=== PATIENT | female | born 1970 | race Caucasian/White ===

== ENCOUNTER 2018-02-13 05:38 | Outpatient (CLI) | payer OTHER ==
[~2018-02-13] VITALS: Ht 162.6 cm; Wt 102.1 kg
[2018-02-13] MEDS ORDERED: SIMV20TA3 PO (15:30)
[2018-02-21] MEDS ORDERED: IBUP-844 PO (07:36)
[2018-02-21] MEDS ORDERED: SIME80TA16 PO (07:36)
[2018-02-21] MEDS ORDERED: DOCU100C37 PO (07:36)
[2018-02-21] MEDS ORDERED: HYDR-34 PO (07:36)
== END 2018-02-13 15:37 ==
LOC: PREOP 05:38
PROVIDERS: ATTEND Obstetrics & Gynecology
DX: Z01.818 Encounter for other preprocedural examination (principal); R19.09 Other intra-abdominal and pelvic swelling, mass and lump; N93.9 Abnormal uterine and vaginal bleeding, unspecified

== ENCOUNTER 2018-02-21 06:08 | Day surgery (SDC) | payer OTHER ==
[~2018-02-21] VITALS: Ht 162.6 cm; Wt 102.1 kg
[~2018-02-21 06:08] MED LIST: SIMV20TA3 PO
--- OUTSIDE RECORDS SUMMARY | 2018-02-21 06:12 | XMS REPORT | Clinical Summary ---
Author Author Admin, ADAM Organization [facility] Address Unknown Phone Unavailable Allergies, Adverse Reactions, Alerts Allergy Name Reaction Description Start Date Severity Status Provider No Known Allergies MARIE Minor Conditions or Problems Problem Name Problem Code Onset Date Status Entry Date Provider Comment Standard Description Annotate HYPERLIPIDEMIA 272.4 Active Jakub Arciniega MD Other and unspecified hyperlipidemia UNSPECIFIED PRURITIC DISORDER 698.9 Active Jakub Arciniega MD Unspecified pruritic disorder BRONCHITIS-ACUTE 466.0 Inactive Jakub Arciniega MD Acute bronchitis ROUTINE GYNECOLOGICAL EXAMINATION V72.31 Resolved Leanne Olmos MD PhD Routine gynecological examination HEALTH SCREENING V70.0 Resolved Leanne Olmos MD PhD Routine general medical examination at a health care facility FATIGUE 780.79 Resolved Leanne Olmos MD PhD Other malaise and fatigue SKIN RASH 782.1 Resolved Leanne Olmos MD PhD Rash and other nonspecific skin eruption PHARYNGITIS 462 Active Leanne Olmos MD PhD Acute pharyngitis MENOPAUSAL SYNDROME 627.2 Active Alem Chow Symptomatic menopausal or female climacteric states KNEE PAIN, LEFT 719.46 Active Dimple García Pain in joint involving lower leg Dermatitis, face 692.9 Active Jakub Arciniega MD Contact dermatitis and other eczema, unspecified cause Upper respiratory infection 465.9 Active David Mercedes MD Acute upper respiratory infections of unspecified site Skin tag 701.9 Active Jakub Arciniega MD Unspecified hypertrophic and atrophic conditions of skin BRONCHITIS-ACUTE ICD-466.0 Inactive Jakub Arciniega MD ROUTINE GYNECOLOGICAL EXAMINATION ICD-V72.31 Inactive Leanne Olmos MD PhD HEALTH SCREENING ICD-V70.0 Inactive Leanne Olmos MD PhD FATIGUE ICD-780.79 Inactive Leanne Olmos MD PhD SKIN RASH ICD-782.1 Inactive Leanne Olmos MD PhD Medication List Medication Instructions Start Date Stop Date Generic Name NDC Status Provider Patient Instruction GUAIFENESIN-CODEINE 100-10 MG/5ML SYRP 1 tsp PO q6h PRN cough GUAIFENESIN-CODEINE 45343338519 No Longer Active Jakub Arciniega MD Active SPIRONOLACTONE 25 MG TABS TAKE 1/2 TABLET PO QD SPIRONOLACTONE 96519238736 No Longer Active Jakub Arciniega MD Active DOXYCYCLINE HYCLATE 100 MG CAPS TAKE 1 TABLET PO BID DOXYCYCLINE HYCLATE 65528083126 No Longer Active Jakub Arciniega MD Active HYDROCODONE-ACETAMINOPHEN 5-500 MG TABS take 1 po Q 6 hours prn pain HYDROCODONE-ACETAMINOPHEN 92375878074 No Longer Active Jakub Arciniega MD Active BACTROBAN 2 % OINT 3 times daily for 14 days MUPIROCIN 25459654230 No Longer Active Jakub Arciniega MD Active CHERATUSSIN AC 100-10 MG/5ML SYRP 1 tsp by mouth every 4 hours as needed for cough GUAIFENESIN-CODEINE 09367297324 No Longer Active Jakub Arciniega MD Active PREDNISONE 20 MG TAB 2 tabs daily for 3 days, 1 tab daily for 3 days, 1/2 tab daily for 2 days PREDNISONE 27573604675 No Longer Active Jakub Arciniega MD Active ZITHROMAX 250 MG TAB 2 po today, then 1 po q days 2-5 AZITHROMYCIN 81124768317 No Longer Active Jakub Arciniega MD Active SIMVASTATIN 20 MG TABS 1 po daily SIMVASTATIN 47876104605 Active Jakub Arciniega MD Active CHERATUSSIN AC 100-10 MG/5ML SYRP 1 tsp by mouth every 4 hours as needed for cough CHERATUSSIN AC 100-10 MG/5ML SYRP 677641 GUAIFENESIN-CODEINE Inactive BACTROBAN 2 % OINT 3 times daily for 14 days BACTROBAN 2 % OINT 984141 MUPIROCIN Inactive HYDROCODONE-ACETAMINOPHEN 5-500 MG TABS take 1 po Q 6 hours prn pain HYDROCODONE-ACETAMINOPHEN 5-500 MG TABS HYDROCODONE- ACETAMINOPHEN Inactive DOXYCYCLINE HYCLATE 100 MG CAPS TAKE 1 TABLET PO BID DOXYCYCLINE HYCLATE 100 MG CAPS 5856602 DOXYCYCLINE HYCLATE Inactive SPIRONOLACTONE 25 MG TABS TAKE 1/2 TABLET PO QD SPIRONOLACTONE 25 MG TABS 460252 SPIRONOLACTONE Inactive GUAIFENESIN-CODEINE 100-10 MG/5ML SYRP 1 tsp PO q6h PRN cough GUAIFENESIN-CODEINE 100-10 MG/5ML SYRP 528399 GUAIFENESIN-CODEINE Inactive ZITHROMAX 250 MG TAB 2 po today, then 1 po q days 2-5 ZITHROMAX 250 MG TAB 9113399 AZITHROMYCIN Inactive PREDNISONE 20 MG TAB 2 tabs daily for 3 days, 1 tab daily for 3 days, 1/2 tab daily for 2 days PREDNISONE 20 MG TAB 809238 PREDNISONE Inactive Vital Signs Date Name Value Unit Range Description blood pressure, diastolic - 8462-4 76 mm[Hg] BP woodard blood pressure, systolic - 8480-6 115 mm[Hg] BP sys pulse rate E&M - 8867-4 88 /min Heart rate temperature E&M 98.2 [degF] Body temperature weight E&M - 3141-9 230 [lb_av] Weight Measured blood pressure, diastolic - 8462-4 84 mm[Hg] BP woodard blood pressure, systolic - 8480-6 127 mm[Hg] BP sys pulse rate E&M - 8867-4 71 /min Heart rate temperature E&M 97.8 [degF] Body temperature weight E&M - 3141-9 237.4 [lb_av] Weight Measured Diagnostic Results Date Name Value Unit Range Description Chart Maintenance: labs added to flowsheet - Chemistry cholesterol, serum 189 mg/dL HDL cholesterol, serum 62 mg/dL LDL cholesterol, serum 101 mg/dL triglyceride, serum, fasting 126 mg/dL thyroid stimulating hormone, serum 1.18 u[iU]/mL blood glucose 97 mg/dL Chart Maintenance: labs added to flowsheet - Hematology leukocyte count, blood 6.3 10*3/mm3 hemoglobin, blood 15.4 g/dL platelet count 280 10*3/mm3 Encounters Code Encounter Date Provider Facility CPT-00781 Level 3 Est. Patient 13:49:04 CDT Jakub Arciniega MD [facility] CPT-06079 Level 3 Est. Patient 12:49:25 KINESIOLOGY PROFESSOR David Mercedes MD [facility] CPT-77832 Level 3 Est. Patient 20:50:49 CDT Jakub Arciniega MD [facility] CPT-13785 Level 3 Est. Patient 14:31:29 CDT Dimple García [facility] CPT-17814 Level 3 Est. Patient 21:23:01 CDT Leanne Olmos MD PhD [facility] CPT-64043 Level 3 Est. Patient 15:37:45 KINESIOLOGY PROFESSOR Jakub Arciniega MD [facility] CPT-14256 Level 3 Est. Patient 10:40:45 KINESIOLOGY PROFESSOR Jakub Arciniega MD [facility] CPT-77991 Level 3 Est. Patient 14:24:04 CDT Jakub Arciniega MD [facility] Procedures Code Procedure Name Date Entry Date Standard Description CPT-04735 Skin tag remov up to/=15 13:49:04 CDT CPT-49177 Knee 3V 17:10:15 CDT
--- OUTSIDE RECORDS SUMMARY | 2018-02-21 06:12 | XMS REPORT | Clinical Summary ---
Author Author Admin, ADAM Organization [facility] Address Unknown Phone Unavailable Allergies, Adverse Reactions, Alerts Allergy Name Reaction Description Start Date Severity Status Provider No Known Allergies Zoya Harper Conditions or Problems Problem Name Problem Code [...] 1 tsp PO q6h PRN cough GUAIFENESIN-CODEINE 60519125958 No Longer Active Jakub Arciniega MD Active SPIRONOLACTONE 25 MG TABS TAKE 1/2 TABLET PO QD SPIRONOLACTONE 69648386171 No Longer Active Jakub Arciniega MD Active DOXYCYCLINE HYCLATE 100 MG CAPS TAKE 1 TABLET PO BID DOXYCYCLINE HYCLATE 01375130370 No Longer Active Jakub Arciniega MD Active HYDROCODONE-ACETAMINOPHEN 5-500 MG TABS take 1 po Q 6 hours prn pain HYDROCODONE-ACETAMINOPHEN 30318665838 No Longer Active Jakub Arciniega MD Active BACTROBAN 2 % OINT 3 times daily for 14 days MUPIROCIN 44212051403 No Longer Active Jakub Arciniega MD Active CHERATUSSIN AC 100-10 MG/5ML SYRP 1 tsp by mouth every 4 hours as needed for cough GUAIFENESIN-CODEINE 44886725228 No Longer Active Jakub Arciniega MD Active PREDNISONE 20 MG TAB 2 tabs daily for 3 days, 1 tab daily for 3 days, 1/2 tab daily for 2 days PREDNISONE 92121696730 No Longer Active Jakub Arciniega MD Active ZITHROMAX 250 MG TAB 2 po today, then 1 po q days 2-5 AZITHROMYCIN 91010643581 No Longer Active Jakub Arciniega MD Active SIMVASTATIN 20 MG TABS 1 po daily SIMVASTATIN 31863851714 Active Jakub Arciniega MD Active CHERATUSSIN AC 100-10 MG/5ML SYRP 1 tsp by mouth every 4 hours as needed for cough CHERATUSSIN AC 100-10 MG/5ML SYRP 220482 GUAIFENESIN-CODEINE Inactive BACTROBAN 2 % OINT 3 times daily for 14 days BACTROBAN 2 % OINT 144788 MUPIROCIN Inactive HYDROCODONE-ACETAMINOPHEN 5-500 MG TABS take 1 po Q 6 hours prn pain HYDROCODONE-ACETAMINOPHEN 5-500 MG TABS HYDROCODONE- ACETAMINOPHEN Inactive DOXYCYCLINE HYCLATE 100 MG CAPS TAKE 1 TABLET PO BID DOXYCYCLINE HYCLATE 100 MG CAPS 2248854 DOXYCYCLINE HYCLATE Inactive SPIRONOLACTONE 25 MG TABS TAKE 1/2 TABLET PO QD SPIRONOLACTONE 25 MG TABS 625750 SPIRONOLACTONE Inactive GUAIFENESIN-CODEINE 100-10 MG/5ML SYRP 1 tsp PO q6h PRN cough GUAIFENESIN-CODEINE 100-10 MG/5ML SYRP 689826 GUAIFENESIN-CODEINE Inactive ZITHROMAX 250 MG TAB 2 po today, then 1 po q days 2-5 ZITHROMAX 250 MG TAB 8458238 AZITHROMYCIN Inactive PREDNISONE 20 MG TAB 2 tabs daily for 3 days, 1 tab daily for 3 days, 1/2 tab daily for 2 days PREDNISONE 20 MG TAB 757507 PREDNISONE Inactive Vital Signs Date Name Value Unit Range Description blood pressure, diastolic - 8462-4 102 mm[Hg] BP woodard blood pressure, systolic - 8480-6 138 mm[Hg] BP sys pulse rate E&M - 8867-4 59 /min Heart rate temperature E&M 98.4 [degF] Body temperature weight E&M - 3141-9 230.5 [lb_av] Weight Measured Diagnostic Results Date Name Value Unit Range Description Office Visit: Med check up - Chemistry cholesterol, target level 200 mg/dL LDL target level 160 mg/dL HDL cholesterol, serum, target level 40 mg/dL triglyceride, target level 150 mg/dL Encounters Code Encounter Date Provider Facility CPT-42249 Level 4 Est. Patient 14:50:56 GRADES 9 12 TUTOR Jakub Arciniega MD [facility] CPT-03364 Level 3 Est. Patient 13:49:04 CDT Jakub Arciniega MD [facility] CPT-13055 Level 3 Est. Patient 12:49:25 GRADES 9 12 TUTOR David Mercedes MD [facility] CPT-84152 Level 3 Est. Patient 20:50:49 CDT Jakub Arciniega MD [facility] CPT-05101 Level 3 Est. Patient 14:31:29 CDT Dimple García [facility] CPT-14064 Level 3 Est. Patient 21:23:01 CDT Leanne Olmos MD PhD [facility] CPT-51848 Level 3 Est. Patient 15:37:45 GRADES 9 12 TUTOR Jakub Arciniega MD [facility] CPT-37405 Level 3 Est. Patient 10:40:45 GRADES 9 12 TUTOR Jakub Arciniega MD [facility] CPT-49983 Level 3 Est. Patient 14:24:04 CDT Jakub Arciniega MD [facility] Procedures Code Procedure Name Date Entry Date Standard Description CPT-78431 Skin tag remov up to/=15 13:49:04 CDT CPT-56779 Knee 3V 17:10:15 CDT
--- OUTSIDE RECORDS SUMMARY | 2018-02-21 06:12 | XMS REPORT | Clinical Summary ---
Author Author Admin, ADAM Organization [facility] Address Unknown Phone Unavailable Allergies, Adverse Reactions, Alerts Allergy Name Reaction Description Start Date Severity Status Provider No Known Allergies Alem Chow Conditions or Problems Problem Name Problem Code [...] Acute upper respiratory infections of unspecified site BRONCHITIS-ACUTE ICD-466.0 Inactive Jakub Arciniega MD ROUTINE GYNECOLOGICAL EXAMINATION ICD-V72.31 Inactive Leanne Olmos MD PhD HEALTH SCREENING ICD-V70.0 Inactive Leanne Olmos MD PhD FATIGUE ICD-780.79 Inactive Leanne Olmos MD PhD SKIN RASH ICD-782.1 Inactive Leanne Olmos MD PhD Medication List Medication Instructions Start Date Stop Date Generic Name ND Status Provider Patient Instruction GUAIFENESIN-CODEINE 100-10 MG/5ML SYRP 1 tsp PO q6h PRN cough GUAIFENESIN-CODEINE 14621675999 Active David Mercedes MD Active SPIRONOLACTONE 25 MG TABS TAKE 1/2 TABLET PO QD SPIRONOLACTONE 96203036515 No Longer Active Jakub Arciniega MD Active DOXYCYCLINE HYCLATE 100 MG CAPS TAKE 1 TABLET PO BID DOXYCYCLINE HYCLATE 51872185725 No Longer Active Jakub Arciniega MD Active HYDROCODONE-ACETAMINOPHEN 5-500 MG TABS take 1 po Q 6 hours prn pain HYDROCODONE-ACETAMINOPHEN 18830298817 No Longer Active Jakub Arciniega MD Active BACTROBAN 2 % OINT 3 times daily for 14 days MUPIROCIN 65398469298 No Longer Active Jakub Arciniega MD Active CHERATUSSIN AC 100-10 MG/5ML SYRP 1 tsp by mouth every 4 hours as needed for cough GUAIFENESIN-CODEINE 84223068508 No Longer Active Jakub Arciniega MD Active PREDNISONE 20 MG TAB 2 tabs daily for 3 days, 1 tab daily for 3 days, 1/2 tab daily for 2 days PREDNISONE 40169694835 No Longer Active Jakub Arciniega MD Active ZITHROMAX 250 MG TAB 2 po today, then 1 po q days 2-5 AZITHROMYCIN 40457612560 No Longer Active Jakub Arcineiga MD Active SIMVASTATIN 20 MG TABS 1 po daily SIMVASTATIN 00696086598 Active Jakub Arciniega MD Active CHERATUSSIN AC 100-10 MG/5ML SYRP 1 tsp by mouth every 4 hours as needed for cough CHERATUSSIN AC 100-10 MG/5ML SYRP 555869 GUAIFENESIN-CODEINE Inactive BACTROBAN 2 % OINT 3 times daily for 14 days BACTROBAN 2 % OINT 954918 MUPIROCIN Inactive HYDROCODONE-ACETAMINOPHEN 5-500 MG TABS take 1 po Q 6 hours prn pain HYDROCODONE-ACETAMINOPHEN 5-500 MG TABS HYDROCODONE- ACETAMINOPHEN Inactive DOXYCYCLINE HYCLATE 100 MG CAPS TAKE 1 TABLET PO BID DOXYCYCLINE HYCLATE 100 MG CAPS 245311 DOXYCYCLINE HYCLATE Inactive SPIRONOLACTONE 25 MG TABS TAKE 1/2 TABLET PO QD SPIRONOLACTONE 25 MG TABS 101969 SPIRONOLACTONE Inactive ZITHROMAX 250 MG TAB 2 po today, then 1 po q days 2-5 ZITHROMAX 250 MG TAB 0849187 AZITHROMYCIN Inactive PREDNISONE 20 MG TAB 2 tabs daily for 3 days, 1 tab daily for 3 days, 1/2 tab daily for 2 days PREDNISONE 20 MG TAB 349306 PREDNISONE Inactive Vital Signs Date Name Value Unit Range Description blood pressure, diastolic - 8462-4 84 mm[Hg] BP woodard blood pressure, systolic - 8480-6 127 mm[Hg] BP sys pulse rate E&M - 8867-4 71 /min Heart rate temperature E&M 97.8 [degF] Body temperature weight E&M - 3141-9 237.4 [lb_av] Weight Measured Diagnostic Results Date Name Value Unit Range Description Chart Maintenance: labs added to flowsheet - Chemistry sodium, serum 142 mmol/L potassium, serum 3.9 mmol/L urea nitrogen, blood 12 mg/dL blood glucose 100 mg/dL creatinine, serum .70 mg/dL alkaline phosphatase, serum 63 U/L cholesterol, serum 147 mg/dL HDL cholesterol, serum 58 mg/dL LDL cholesterol, serum 72 mg/dL triglyceride, serum, fasting 84 mg/dL cholesterol, serum 189 mg/dL HDL cholesterol, serum 62 mg/dL LDL cholesterol, serum 101 mg/dL triglyceride, serum, fasting 126 mg/dL thyroid stimulating hormone, serum 1.18 u[iU]/mL blood glucose 97 mg/dL Chart Maintenance: labs added to flowsheet - Hematology leukocyte count, blood 6.3 10*3/mm3 hemoglobin, blood 15.4 g/dL platelet count 280 10*3/mm3 leukocyte count, blood 6.3 10*3/mm3 hemoglobin, blood 14.3 g/dL platelet count 247 10*3/mm3 Encounters Code Encounter Date Provider Facility CPT-43242 Level 3 Est. Patient 12:49:25 DIRECTOR OF BUSINESS APPLICATIONS David Mercedes MD [facility] CPT-86740 Level 3 Est. Patient 20:50:49 CDT Jakub Arciniega MD [facility] CPT-83291 Level 3 Est. Patient 14:31:29 CDT Dimple García [facility] CPT-30795 Level 3 Est. Patient 21:23:01 CDT Leanne Olmos MD PhD [facility] CPT-56682 Level 3 Est. Patient 15:37:45 DIRECTOR OF BUSINESS APPLICATIONS Jakub Arciniega MD [facility] CPT-91310 Level 3 Est. Patient 10:40:45 DIRECTOR OF BUSINESS APPLICATIONS Jakub Arciniega MD [facility] CPT-72985 Level 3 Est. Patient 14:24:04 CDT Jakub Arciniega MD [facility] Procedures Code Procedure Name Date Entry Date Standard Description CPT-27405 Knee 3V 17:10:15 CDT
--- OUTSIDE RECORDS SUMMARY | 2018-02-21 06:13 | XMS REPORT | Clinical Summary ---
Author Author Admin, ADAM Organization [facility] Address Unknown Phone Unavailable Allergies, Adverse [...] 1 tsp PO q6h PRN cough GUAIFENESIN-CODEINE 74102603343 No Longer Active Jakub Arciniega MD Active SPIRONOLACTONE 25 MG TABS TAKE 1/2 TABLET PO QD SPIRONOLACTONE 11217499332 No Longer Active Jakub Arciniega MD Active DOXYCYCLINE HYCLATE 100 MG CAPS TAKE 1 TABLET PO BID DOXYCYCLINE HYCLATE 14735281593 No Longer Active Jakub Arciniega MD Active HYDROCODONE-ACETAMINOPHEN 5-500 MG TABS take 1 po Q 6 hours prn pain HYDROCODONE-ACETAMINOPHEN 14261460716 No Longer Active Jakub Arciniega MD Active BACTROBAN 2 % OINT 3 times daily for 14 days MUPIROCIN 04636366190 No Longer Active Jakub Arciniega MD Active CHERATUSSIN AC 100-10 MG/5ML SYRP 1 tsp by mouth every 4 hours as needed for cough GUAIFENESIN-CODEINE 59394968264 No Longer Active Jakub Arciniega MD Active PREDNISONE 20 MG TAB 2 tabs daily for 3 days, 1 tab daily for 3 days, 1/2 tab daily for 2 days PREDNISONE 96181005579 No Longer Active Jakub Arciniega MD Active ZITHROMAX 250 MG TAB 2 po today, then 1 po q days 2-5 AZITHROMYCIN 03031757734 No Longer Active Jakub Arciniega MD Active SIMVASTATIN 20 MG TABS 1 po daily SIMVASTATIN 25822535277 Active Lashell Carney SUPERVISOR WORD PROCESSING Active CHERATUSSIN AC 100-10 MG/5ML SYRP 1 tsp by mouth every 4 hours as needed for cough CHERATUSSIN AC 100-10 MG/5ML SYRP 679995 GUAIFENESIN-CODEINE Inactive BACTROBAN 2 % OINT 3 times daily for 14 days BACTROBAN 2 % OINT 576085 MUPIROCIN Inactive HYDROCODONE-ACETAMINOPHEN 5-500 MG TABS take 1 po Q 6 hours prn pain HYDROCODONE-ACETAMINOPHEN 5-500 MG TABS HYDROCODONE- ACETAMINOPHEN Inactive DOXYCYCLINE HYCLATE 100 MG CAPS TAKE 1 TABLET PO BID DOXYCYCLINE HYCLATE 100 MG CAPS 6027346 DOXYCYCLINE HYCLATE Inactive SPIRONOLACTONE 25 MG TABS TAKE 1/2 TABLET PO QD SPIRONOLACTONE 25 MG TABS 932726 SPIRONOLACTONE Inactive GUAIFENESIN-CODEINE 100-10 MG/5ML SYRP 1 tsp PO q6h PRN cough GUAIFENESIN-CODEINE 100-10 MG/5ML SYRP 223549 GUAIFENESIN-CODEINE Inactive ZITHROMAX 250 MG TAB 2 po today, then 1 po q days 2-5 ZITHROMAX 250 MG TAB 2375773 AZITHROMYCIN Inactive PREDNISONE 20 MG TAB 2 tabs daily for 3 days, 1 tab daily for 3 days, 1/2 tab daily for 2 days PREDNISONE 20 MG TAB 933160 PREDNISONE Inactive Vital Signs Date Name Value [...] E&M - 3141-9 237.4 [lb_av] Weight Measured Encounters Code Encounter Date Provider Facility CPT-57315 Level 3 Est. Patient 13:49:04 CDT Jakub Arciniega MD [facility] CPT-02041 Level 3 Est. Patient 12:49:25 TREASURY ACCOUNTANT David Mercedes MD [facility] CPT-28691 Level 3 Est. Patient 20:50:49 CDT Jakub Arciniega MD [facility] CPT-70290 Level 3 Est. Patient 14:31:29 CDT Dimple García [facility] CPT-84032 Level 3 Est. Patient 21:23:01 CDT Leanne Olmos MD PhD [facility] CPT-14884 Level 3 Est. Patient 15:37:45 TREASURY ACCOUNTANT Jakub Arciniega MD [facility] CPT-14530 Level 3 Est. Patient 10:40:45 TREASURY ACCOUNTANT Jakub Arciniega MD [facility] CPT-36291 Level 3 Est. Patient 14:24:04 CDT Jakub Arciniega MD [facility] Procedures Code Procedure Name Date Entry Date Standard Description CPT-94834 Skin tag remov up to/=15 13:49:04 CDT CPT-02195 Knee 3V 17:10:15 CDT
--- OUTSIDE RECORDS SUMMARY | 2018-02-21 06:13 | XMS REPORT | Clinical Summary ---
Author Author Admin, ADAM Organization [facility] Address Unknown Phone Unavailable Allergies, Adverse Reactions, Alerts Allergy Name Reaction Description Start Date Severity Status Provider No Known Allergies [place] SALAZAR Conditions or Problems Problem Name Problem Code [...] Unspecified hypertrophic and atrophic conditions of skin Ganglion cyst of left wrist 727.41 Active Jakub Arciniega MD Ganglion of joint Abnormal perimenopausal bleeding 627.0 Active Jakub Arciniega MD Premenopausal menorrhagia BMI 38-38.9 adult V85.38 Active Jakub Arciniega MD Body Mass Index 38.0-38.9, adult BRONCHITIS-ACUTE ICD-466.0 Inactive Jakub Arciniega MD ROUTINE GYNECOLOGICAL EXAMINATION ICD-V72.31 Inactive Leanne Olmos MD PhD HEALTH SCREENING ICD-V70.0 Inactive Leanne Olmos MD PhD FATIGUE ICD-780.79 Inactive Leanne Olmos MD PhD SKIN RASH ICD-782.1 Inactive Leanne Olmos MD PhD Medication List Medication Instructions Start Date Stop Date Generic Name [facility] Status Provider Patient Instruction GUAIFENESIN-CODEINE 100-10 MG/5ML ORAL SYRUP 1 tsp PO q6h PRN cough GUAIFENESIN-CODEINE 39239258551 No Longer Active Jakub Arciniega MD Active SPIRONOLACTONE 25 MG ORAL TABLET TAKE 1/2 TABLET PO QD SPIRONOLACTONE 67109852273 No Longer Active Jakub Arciniega MD Active DOXYCYCLINE HYCLATE 100 MG ORAL CAPSULE TAKE 1 TABLET PO BID DOXYCYCLINE HYCLATE 32379133655 No Longer Active Jakub Arciniega MD Active HYDROCODONE-ACETAMINOPHEN 5-500 MG ORAL TABLET take 1 po Q 6 hours prn pain HYDROCODONE-ACETAMINOPHEN 99744315903 No Longer Active Jakub Arciniega MD Active BACTROBAN 2 % EXTERNAL OINTMENT 3 times daily for 14 days MUPIROCIN 50515907531 No Longer Active Jakub Arciniega MD Active CHERATUSSIN AC 100-10 MG/5ML ORAL SYRUP 1 tsp by mouth every 4 hours as needed for cough GUAIFENESIN-CODEINE 00489933585 No Longer Active Jakub Arciniega MD Active PREDNISONE 20 MG ORAL TABLET 2 tabs daily for 3 days, 1 tab daily for 3 days, 1/2 tab daily for 2 days PREDNISONE 89015435633 No Longer Active Jakub Arciniega MD Active ZITHROMAX 250 MG ORAL TABLET 2 po today, then 1 po q days 2-5 AZITHROMYCIN 46954740144 No Longer Active Jakub Arciniega MD Active SIMVASTATIN 20 MG ORAL TABLET 1 po daily SIMVASTATIN 59591836681 Active Jakub Arciniega MD Active CHERATUSSIN AC 100-10 MG/5ML ORAL SYRUP 1 tsp by mouth every 4 hours as needed for cough CHERATUSSIN AC 100-10 MG/5ML ORAL SYRUP 166924 GUAIFENESIN-CODEINE Inactive BACTROBAN 2 % EXTERNAL OINTMENT 3 times daily for 14 days BACTROBAN 2 % EXTERNAL OINTMENT 284690 MUPIROCIN Inactive HYDROCODONE-ACETAMINOPHEN 5-500 MG ORAL TABLET take 1 po Q 6 hours prn pain HYDROCODONE-ACETAMINOPHEN 5-500 MG ORAL TABLET 244515 HYDROCODONE-ACETAMINOPHEN Inactive DOXYCYCLINE HYCLATE 100 MG ORAL CAPSULE TAKE 1 TABLET PO BID DOXYCYCLINE HYCLATE 100 MG ORAL CAPSULE 0304438 DOXYCYCLINE HYCLATE Inactive SPIRONOLACTONE 25 MG ORAL TABLET TAKE 1/2 TABLET PO QD SPIRONOLACTONE 25 MG ORAL TABLET 418693 SPIRONOLACTONE Inactive GUAIFENESIN-CODEINE 100-10 MG/5ML ORAL SYRUP 1 tsp PO q6h PRN cough GUAIFENESIN-CODEINE 100-10 MG/5ML ORAL SYRUP 490075 GUAIFENESIN-CODEINE Inactive ZITHROMAX 250 MG ORAL TABLET 2 po today, then 1 po q days 2-5 ZITHROMAX 250 MG ORAL TABLET 163293 AZITHROMYCIN Inactive PREDNISONE 20 MG ORAL TABLET 2 tabs daily for 3 days, 1 tab daily for 3 days, 1/2 tab daily for 2 days PREDNISONE 20 MG ORAL TABLET 475414 PREDNISONE Inactive Vital Signs Date Name Value Unit Range Description blood pressure, diastolic 96 mm[Hg] BP woodard blood pressure, systolic 160 mm[Hg] BP sys height E&M 64 [in_us] Bdy height pulse rate E&M 65 /min Heart rate temperature E&M 98.4 [degF] Body temperature weight E&M 226 [lb_av] Weight Measured Diagnostic Results Date Name Value Unit Range Description Office Visit: medication review - Basic LDL target level 160 mg/dL Office Visit: medication review - Chemistry HDL cholesterol, serum, target level 40 mg/dL triglyceride, target level 150 mg/dL cholesterol, target level 200 mg/dL Encounters Code Encounter Date Provider Facility CPT-54301 Level 4 Est. Patient 08:42:09 WARPER TENDER Jakub Arciniega MD [facility] CPT-94952 Level 4 Est. Patient 14:50:56 WARPER TENDER Jakub Arciniega MD [facility] CPT-79592 Level 3 Est. Patient 13:49:04 CDT Jakub Arciniega MD [facility] CPT-15499 Level 3 Est. Patient 12:49:25 WARPER TENDER David Mercedes MD [facility] CPT-23935 Level 3 Est. Patient 20:50:49 CDT Jakub Arciniega MD [facility] CPT-93708 Level 3 Est. Patient 14:31:29 CDT Dimple García [facility] CPT-52176 Level 3 Est. Patient 21:23:01 CDT Leanne Olmos MD PhD [facility] CPT-13882 Level 3 Est. Patient 15:37:45 WARPER TENDER Jakub Arciniega MD [facility] CPT-03738 Level 3 Est. Patient 10:40:45 WARPER TENDER Jakub Arciniega MD [facility] CPT-32288 Level 3 Est. Patient 14:24:04 CDT Jakub Arciniega MD [facility] Procedures Code Procedure Name Date Entry Date Standard Description CPT-11301 Skin tag remov up to/=15 13:49:04 CDT CPT-77562 Knee 3V 17:10:15 CDT
--- OUTSIDE RECORDS SUMMARY | 2018-02-21 06:13 | XMS REPORT | Clinical Summary ---
Author Author Admin, ADAM Organization [facility] Address Unknown Phone Unavailable Allergies, Adverse Reactions, [...] Instructions Start Date Stop Date Generic Name [facility] Status Provider Patient Instruction GUAIFENESIN-CODEINE 100-10 MG/5ML ORAL SYRUP 1 tsp PO q6h PRN cough GUAIFENESIN-CODEINE 49393894352 No Longer Active Jakub Arciniega MD Active SPIRONOLACTONE 25 MG ORAL TABLET TAKE 1/2 TABLET PO QD SPIRONOLACTONE 30690770725 No Longer Active Jakub Arciniega MD Active DOXYCYCLINE HYCLATE 100 MG ORAL CAPSULE TAKE 1 TABLET PO BID DOXYCYCLINE HYCLATE 45844755145 No Longer Active Jakub Arciniega MD Active HYDROCODONE-ACETAMINOPHEN 5-500 MG ORAL TABLET take 1 po Q 6 hours prn pain HYDROCODONE-ACETAMINOPHEN 74021316414 No Longer Active Jakub Arciniega MD Active BACTROBAN 2 % EXTERNAL OINTMENT 3 times daily for 14 days MUPIROCIN 75662397851 No Longer Active Jakub Arciniega MD Active CHERATUSSIN AC 100-10 MG/5ML ORAL SYRUP 1 tsp by mouth every 4 hours as needed for cough GUAIFENESIN-CODEINE 24994545241 No Longer Active Jakub Arciniega MD Active PREDNISONE 20 MG ORAL TABLET 2 tabs daily for 3 days, 1 tab daily for 3 days, 1/2 tab daily for 2 days PREDNISONE 11238674130 No Longer Active Jakub Arciniega MD Active ZITHROMAX 250 MG ORAL TABLET 2 po today, then 1 po q days 2-5 AZITHROMYCIN 24669097063 No Longer Active Jakub Arciniega MD Active SIMVASTATIN 20 MG ORAL TABLET 1 po daily SIMVASTATIN 08848630026 Active Jakub Arciniega MD Active CHERATUSSIN AC 100-10 MG/5ML ORAL SYRUP 1 tsp by mouth every 4 hours as needed for cough CHERATUSSIN AC 100-10 MG/5ML ORAL SYRUP 330615 GUAIFENESIN-CODEINE Inactive BACTROBAN 2 % EXTERNAL OINTMENT 3 times daily for 14 days BACTROBAN 2 % EXTERNAL OINTMENT 873264 MUPIROCIN Inactive HYDROCODONE-ACETAMINOPHEN 5-500 MG ORAL TABLET take 1 po Q 6 hours prn pain HYDROCODONE-ACETAMINOPHEN 5-500 MG ORAL TABLET 999166 HYDROCODONE-ACETAMINOPHEN Inactive DOXYCYCLINE HYCLATE 100 MG ORAL CAPSULE TAKE 1 TABLET PO BID DOXYCYCLINE HYCLATE 100 MG ORAL CAPSULE 6505505 DOXYCYCLINE HYCLATE Inactive SPIRONOLACTONE 25 MG ORAL TABLET TAKE 1/2 TABLET PO QD SPIRONOLACTONE 25 MG ORAL TABLET 021502 SPIRONOLACTONE Inactive GUAIFENESIN-CODEINE 100-10 MG/5ML ORAL SYRUP 1 tsp PO q6h PRN cough GUAIFENESIN-CODEINE 100-10 MG/5ML ORAL SYRUP 191390 GUAIFENESIN-CODEINE Inactive ZITHROMAX 250 MG ORAL TABLET 2 po today, then 1 po q days 2-5 ZITHROMAX 250 MG ORAL TABLET 498437 AZITHROMYCIN Inactive PREDNISONE 20 MG ORAL TABLET 2 tabs daily for 3 days, 1 tab daily for 3 days, 1/2 tab daily for 2 days PREDNISONE 20 MG ORAL TABLET 843014 PREDNISONE Inactive Vital Signs Date Name Value [...] mg/dL Encounters Code Encounter Date Provider Facility CPT-05385 Level 4 Est. Patient 08:42:09 OFFICE AGENT Jakub Arciniega MD [facility] CPT-01555 Level 4 Est. Patient 14:50:56 OFFICE AGENT Jakub Arciniega MD [facility] CPT-01388 Level 3 Est. Patient 13:49:04 CDT Jakub Arciniega MD [facility] CPT-00161 Level 3 Est. Patient 12:49:25 OFFICE AGENT David Mercedes MD [facility] CPT-68794 Level 3 Est. Patient 20:50:49 CDT Jakub Arciniega MD [facility] CPT-18807 Level 3 Est. Patient 14:31:29 CDT Dimple García [facility] CPT-45204 Level 3 Est. Patient 21:23:01 CDT Leanne Olmos MD PhD [facility] CPT-58782 Level 3 Est. Patient 15:37:45 OFFICE AGENT Jakub Arciniega MD [facility] CPT-73152 Level 3 Est. Patient 10:40:45 OFFICE AGENT Jakub Arciniega MD [facility] CPT-07890 Level 3 Est. Patient 14:24:04 CDT Jakub Arciniega MD [facility] Procedures Code Procedure Name Date Entry Date Standard Description CPT-44278 Skin tag remov up to/=15 13:49:04 CDT CPT-81681 Knee 3V 17:10:15 CDT
--- OUTSIDE RECORDS SUMMARY | 2018-02-21 06:13 | XMS REPORT | Clinical Summary ---
Author Author Admin, ADAM Organization [facility] Address Unknown Phone Unavailable Allergies, Adverse Reactions, [...] 1 tsp PO q6h PRN cough GUAIFENESIN-CODEINE 79092036614 No Longer Active Jakub Arciniega MD Active SPIRONOLACTONE 25 MG TABS TAKE 1/2 TABLET PO QD SPIRONOLACTONE 01740953693 No Longer Active Jakub Arciniega MD Active DOXYCYCLINE HYCLATE 100 MG CAPS TAKE 1 TABLET PO BID DOXYCYCLINE HYCLATE 39771331103 No Longer Active Jakub Arciniega MD Active HYDROCODONE-ACETAMINOPHEN 5-500 MG TABS take 1 po Q 6 hours prn pain HYDROCODONE-ACETAMINOPHEN 91309868635 No Longer Active Jakub Arciniega MD Active BACTROBAN 2 % OINT 3 times daily for 14 days MUPIROCIN 73667145491 No Longer Active Jakub Arciniega MD Active CHERATUSSIN AC 100-10 MG/5ML SYRP 1 tsp by mouth every 4 hours as needed for cough GUAIFENESIN-CODEINE 75403010158 No Longer Active Jakub Arciniega MD Active PREDNISONE 20 MG TAB 2 tabs daily for 3 days, 1 tab daily for 3 days, 1/2 tab daily for 2 days PREDNISONE 10320246427 No Longer Active Jakub Arciniega MD Active ZITHROMAX 250 MG TAB 2 po today, then 1 po q days 2-5 AZITHROMYCIN 30475440481 No Longer Active Jakub Arciniega MD Active SIMVASTATIN 20 MG TABS 1 po daily SIMVASTATIN 56723554235 Active Jakub Arciniega MD Active CHERATUSSIN AC 100-10 MG/5ML SYRP 1 tsp by mouth every 4 hours as needed for cough CHERATUSSIN AC 100-10 MG/5ML SYRP 308633 GUAIFENESIN-CODEINE Inactive BACTROBAN 2 % OINT 3 times daily for 14 days BACTROBAN 2 % OINT 940590 MUPIROCIN Inactive HYDROCODONE-ACETAMINOPHEN 5-500 MG TABS take 1 po Q 6 hours prn pain HYDROCODONE-ACETAMINOPHEN 5-500 MG TABS HYDROCODONE- ACETAMINOPHEN Inactive DOXYCYCLINE HYCLATE 100 MG CAPS TAKE 1 TABLET PO BID DOXYCYCLINE HYCLATE 100 MG CAPS 0878172 DOXYCYCLINE HYCLATE Inactive SPIRONOLACTONE 25 MG TABS TAKE 1/2 TABLET PO QD SPIRONOLACTONE 25 MG TABS 359700 SPIRONOLACTONE Inactive GUAIFENESIN-CODEINE 100-10 MG/5ML SYRP 1 tsp PO q6h PRN cough GUAIFENESIN-CODEINE 100-10 MG/5ML SYRP 038517 GUAIFENESIN-CODEINE Inactive ZITHROMAX 250 MG TAB 2 po today, then 1 po q days 2-5 ZITHROMAX 250 MG TAB 5859897 AZITHROMYCIN Inactive PREDNISONE 20 MG TAB 2 tabs daily for 3 days, 1 tab daily for 3 days, 1/2 tab daily for 2 days PREDNISONE 20 MG TAB 733597 PREDNISONE Inactive Vital Signs Date Name Value [...] Description Office Visit: Med check up - Basic LDL target level 160 mg/dL Office Visit: Med check up - Chemistry HDL cholesterol, serum, target level 40 mg/dL triglyceride, target level 150 mg/dL cholesterol, target level 200 mg/dL Encounters Code Encounter Date Provider Facility CPT-52027 Level 4 Est. Patient 14:50:56 SKIN FORMER Jakub Arciniega MD [facility] CPT-47434 Level 3 Est. Patient 13:49:04 CDT Jakub Arciniega MD [facility] CPT-54871 Level 3 Est. Patient 12:49:25 SKIN FORMER David Mercedes MD [facility] CPT-73967 Level 3 Est. Patient 20:50:49 CDT Jakub Arciniega MD [facility] CPT-35984 Level 3 Est. Patient 14:31:29 CDT Dimple García [facility] CPT-48202 Level 3 Est. Patient 21:23:01 CDT Leanne Olmos MD PhD [facility] CPT-02961 Level 3 Est. Patient 15:37:45 SKIN FORMER Jakub Arciniega MD [facility] CPT-94380 Level 3 Est. Patient 10:40:45 SKIN FORMER Jakub Arciniega MD [facility] CPT-00565 Level 3 Est. Patient 14:24:04 CDT Jakub Arciniega MD [facility] Procedures Code Procedure Name Date Entry Date Standard Description CPT-65122 Skin tag remov up to/=15 13:49:04 CDT CPT-75509 Knee 3V 17:10:15 CDT
--- OUTSIDE RECORDS SUMMARY | 2018-02-21 06:14 | XMS REPORT | Clinical Summary ---
Author Author Admin, ADAM Organization [facility] Address Unknown Phone Unavailable Allergies, Adverse [...] 1 tsp PO q6h PRN cough GUAIFENESIN-CODEINE 78630603868 No Longer Active Jakub Arciniega MD Active SPIRONOLACTONE 25 MG TABS TAKE 1/2 TABLET PO QD SPIRONOLACTONE 90017446912 No Longer Active Jakub Arciniega MD Active DOXYCYCLINE HYCLATE 100 MG CAPS TAKE 1 TABLET PO BID DOXYCYCLINE HYCLATE 07883839012 No Longer Active Jakub Arciniega MD Active HYDROCODONE-ACETAMINOPHEN 5-500 MG TABS take 1 po Q 6 hours prn pain HYDROCODONE-ACETAMINOPHEN 60497485265 No Longer Active Jakub Arciniega MD Active BACTROBAN 2 % OINT 3 times daily for 14 days MUPIROCIN 46712237811 No Longer Active Jakub Arciniega MD Active CHERATUSSIN AC 100-10 MG/5ML SYRP 1 tsp by mouth every 4 hours as needed for cough GUAIFENESIN-CODEINE 96629645075 No Longer Active Jakub Arciniega MD Active PREDNISONE 20 MG TAB 2 tabs daily for 3 days, 1 tab daily for 3 days, 1/2 tab daily for 2 days PREDNISONE 54854914301 No Longer Active Jakub Arciniega MD Active ZITHROMAX 250 MG TAB 2 po today, then 1 po q days 2-5 AZITHROMYCIN 12263052606 No Longer Active Jakub Arciniega MD Active SIMVASTATIN 20 MG TABS 1 po daily SIMVASTATIN 60754238991 Active Jakub Arciniega MD Active CHERATUSSIN AC 100-10 MG/5ML SYRP 1 tsp by mouth every 4 hours as needed for cough CHERATUSSIN AC 100-10 MG/5ML SYRP 866841 GUAIFENESIN-CODEINE Inactive BACTROBAN 2 % OINT 3 times daily for 14 days BACTROBAN 2 % OINT 532491 MUPIROCIN Inactive HYDROCODONE-ACETAMINOPHEN 5-500 MG TABS take 1 po Q 6 hours prn pain HYDROCODONE-ACETAMINOPHEN 5-500 MG TABS HYDROCODONE- ACETAMINOPHEN Inactive DOXYCYCLINE HYCLATE 100 MG CAPS TAKE 1 TABLET PO BID DOXYCYCLINE HYCLATE 100 MG CAPS 3380294 DOXYCYCLINE HYCLATE Inactive SPIRONOLACTONE 25 MG TABS TAKE 1/2 TABLET PO QD SPIRONOLACTONE 25 MG TABS 405132 SPIRONOLACTONE Inactive GUAIFENESIN-CODEINE 100-10 MG/5ML SYRP 1 tsp PO q6h PRN cough GUAIFENESIN-CODEINE 100-10 MG/5ML SYRP 802028 GUAIFENESIN-CODEINE Inactive ZITHROMAX 250 MG TAB 2 po today, then 1 po q days 2-5 ZITHROMAX 250 MG TAB 0235089 AZITHROMYCIN Inactive PREDNISONE 20 MG TAB 2 tabs daily for 3 days, 1 tab daily for 3 days, 1/2 tab daily for 2 days PREDNISONE 20 MG TAB 108513 PREDNISONE Inactive Vital Signs Date Name Value [...] mg/dL Encounters Code Encounter Date Provider Facility CPT-53464 Level 4 Est. Patient 14:50:56 VIDEO CONFERENCE SPECIALIST Jakub Arciniega MD [facility] CPT-22108 Level 3 Est. Patient 13:49:04 CDT Jakub Arciniega MD [facility] CPT-38052 Level 3 Est. Patient 12:49:25 VIDEO CONFERENCE SPECIALIST David Mercedes MD [facility] CPT-48272 Level 3 Est. Patient 20:50:49 CDT Jakub Arciniega MD [facility] CPT-21994 Level 3 Est. Patient 14:31:29 CDT Dimple García [facility] CPT-63983 Level 3 Est. Patient 21:23:01 CDT Leanne Olmos MD PhD [facility] CPT-77089 Level 3 Est. Patient 15:37:45 VIDEO CONFERENCE SPECIALIST Jakub Arciniega MD [facility] CPT-30378 Level 3 Est. Patient 10:40:45 VIDEO CONFERENCE SPECIALIST Jakub Arciniega MD [facility] CPT-97763 Level 3 Est. Patient 14:24:04 CDT Jakub Arciniega MD [facility] Procedures Code Procedure Name Date Entry Date Standard Description CPT-81132 Skin tag remov up to/=15 13:49:04 CDT CPT-52529 Knee 3V 17:10:15 CDT
--- OUTSIDE RECORDS SUMMARY | 2018-02-21 06:14 | XMS REPORT | Clinical Summary ---
Author Author Admin, ADAM Organization [facility] Address Unknown Phone Unavailable Allergies, Adverse Reactions, [...] Acute bronchitis ROUTINE GYNECOLOGICAL EXAMINATION V72.31 Resolved Lenane Olmos MD PhD Routine gynecological examination HEALTH [...] 1 tsp PO q6h PRN cough GUAIFENESIN-CODEINE 36297520695 No Longer Active Jakub Arciniega MD Active SPIRONOLACTONE 25 MG TABS TAKE 1/2 TABLET PO QD SPIRONOLACTONE 92371178339 No Longer Active Jakub Arciniega MD Active DOXYCYCLINE HYCLATE 100 MG CAPS TAKE 1 TABLET PO BID DOXYCYCLINE HYCLATE 78944937487 No Longer Active Jakub Arciniega MD Active HYDROCODONE-ACETAMINOPHEN 5-500 MG TABS take 1 po Q 6 hours prn pain HYDROCODONE-ACETAMINOPHEN 40770158720 No Longer Active Jakub Arciniega MD Active BACTROBAN 2 % OINT 3 times daily for 14 days MUPIROCIN 39964192415 No Longer Active Jakub Arciniega MD Active CHERATUSSIN AC 100-10 MG/5ML SYRP 1 tsp by mouth every 4 hours as needed for cough GUAIFENESIN-CODEINE 95397108536 No Longer Active Jakub Arciniega MD Active PREDNISONE 20 MG TAB 2 tabs daily for 3 days, 1 tab daily for 3 days, 1/2 tab daily for 2 days PREDNISONE 03077735630 No Longer Active Jakub Arciniega MD Active ZITHROMAX 250 MG TAB 2 po today, then 1 po q days 2-5 AZITHROMYCIN 74383598865 No Longer Active Jakub Arciniega MD Active SIMVASTATIN 20 MG TABS 1 po daily SIMVASTATIN 33520579648 Active Lashell Carney MANAGER SAFE Active CHERATUSSIN AC 100-10 MG/5ML SYRP 1 tsp by mouth every 4 hours as needed for cough CHERATUSSIN AC 100-10 MG/5ML SYRP 550306 GUAIFENESIN-CODEINE Inactive BACTROBAN 2 % OINT 3 times daily for 14 days BACTROBAN 2 % OINT 831723 MUPIROCIN Inactive HYDROCODONE-ACETAMINOPHEN 5-500 MG TABS take 1 po Q 6 hours prn pain HYDROCODONE-ACETAMINOPHEN 5-500 MG TABS HYDROCODONE- ACETAMINOPHEN Inactive DOXYCYCLINE HYCLATE 100 MG CAPS TAKE 1 TABLET PO BID DOXYCYCLINE HYCLATE 100 MG CAPS 9439413 DOXYCYCLINE HYCLATE Inactive SPIRONOLACTONE 25 MG TABS TAKE 1/2 TABLET PO QD SPIRONOLACTONE 25 MG TABS 129702 SPIRONOLACTONE Inactive GUAIFENESIN-CODEINE 100-10 MG/5ML SYRP 1 tsp PO q6h PRN cough GUAIFENESIN-CODEINE 100-10 MG/5ML SYRP 065784 GUAIFENESIN-CODEINE Inactive ZITHROMAX 250 MG TAB 2 po today, then 1 po q days 2-5 ZITHROMAX 250 MG TAB 8580451 AZITHROMYCIN Inactive PREDNISONE 20 MG TAB 2 tabs daily for 3 days, 1 tab daily for 3 days, 1/2 tab daily for 2 days PREDNISONE 20 MG TAB 466818 PREDNISONE Inactive Vital Signs Date Name Value Unit Range Description blood pressure, diastolic - 8462-4 76 mm[Hg] BP woodard blood pressure, systolic - 8480-6 115 mm[Hg] BP sys pulse rate E&M - 8867-4 88 /min Heart rate temperature E&M 98.2 [degF] Body temperature weight E&M - 3141-9 230 [lb_av] Weight Measured Encounters Code Encounter Date Provider Facility CPT-58096 Level 3 Est. Patient 13:49:04 CDT Jakub Arciniega MD [facility] CPT-07193 Level 3 Est. Patient 12:49:25 WARP HANGER David Mercedes MD [facility] CPT-32064 Level 3 Est. Patient 20:50:49 CDT Jakub Arciniega MD [facility] CPT-46711 Level 3 Est. Patient 14:31:29 CDT Dimple García [facility] CPT-31388 Level 3 Est. Patient 21:23:01 CDT Leanne Olmos MD PhD [facility] CPT-78865 Level 3 Est. Patient 15:37:45 WARP HANGER Jakub Arciniega MD [facility] CPT-91910 Level 3 Est. Patient 10:40:45 WARP HANGER Jakub Arciniega MD [facility] CPT-47860 Level 3 Est. Patient 14:24:04 CDT Jakub Arciniega MD [facility] Procedures Code Procedure Name Date Entry Date Standard Description CPT-47330 Skin tag remov up to/=15 13:49:04 CDT CPT-09732 Knee 3V 17:10:15 CDT
--- OUTSIDE RECORDS SUMMARY | 2018-02-21 06:14 | XMS REPORT | Clinical Summary ---
Author Author Admin, ADAM Organization [facility] Address Unknown Phone Unavailable Allergies, Adverse [...] Instructions Start Date Stop Date Generic Name [facility] Status Provider Patient Instruction GUAIFENESIN-CODEINE 100-10 MG/5ML ORAL SYRUP 1 tsp PO q6h PRN cough GUAIFENESIN-CODEINE 67861647001 No Longer Active Jakub Arciniega MD Active SPIRONOLACTONE 25 MG ORAL TABLET TAKE 1/2 TABLET PO QD SPIRONOLACTONE 80568921474 No Longer Active Jakub Arciniega MD Active DOXYCYCLINE HYCLATE 100 MG ORAL CAPSULE TAKE 1 TABLET PO BID DOXYCYCLINE HYCLATE 04344148592 No Longer Active Jakub Arciniega MD Active HYDROCODONE-ACETAMINOPHEN 5-500 MG ORAL TABLET take 1 po Q 6 hours prn pain HYDROCODONE-ACETAMINOPHEN 10011337774 No Longer Active Jakub Arciniega MD Active BACTROBAN 2 % EXTERNAL OINTMENT 3 times daily for 14 days MUPIROCIN 99998509820 No Longer Active Jakub Arciniega MD Active CHERATUSSIN AC 100-10 MG/5ML ORAL SYRUP 1 tsp by mouth every 4 hours as needed for cough GUAIFENESIN-CODEINE 16994462801 No Longer Active Jakub Arciniega MD Active PREDNISONE 20 MG ORAL TABLET 2 tabs daily for 3 days, 1 tab daily for 3 days, 1/2 tab daily for 2 days PREDNISONE 26574124956 No Longer Active Jakub Arciniega MD Active ZITHROMAX 250 MG ORAL TABLET 2 po today, then 1 po q days 2-5 AZITHROMYCIN 78863896077 No Longer Active Jakub Arciniega MD Active SIMVASTATIN 20 MG ORAL TABLET 1 po daily SIMVASTATIN 60858874313 Active Jakub Arciniega MD Active CHERATUSSIN AC 100-10 MG/5ML ORAL SYRUP 1 tsp by mouth every 4 hours as needed for cough CHERATUSSIN AC 100-10 MG/5ML ORAL SYRUP 633386 GUAIFENESIN-CODEINE Inactive BACTROBAN 2 % EXTERNAL OINTMENT 3 times daily for 14 days BACTROBAN 2 % EXTERNAL OINTMENT 882818 MUPIROCIN Inactive HYDROCODONE-ACETAMINOPHEN 5-500 MG ORAL TABLET take 1 po Q 6 hours prn pain HYDROCODONE-ACETAMINOPHEN 5-500 MG ORAL TABLET 215101 HYDROCODONE-ACETAMINOPHEN Inactive DOXYCYCLINE HYCLATE 100 MG ORAL CAPSULE TAKE 1 TABLET PO BID DOXYCYCLINE HYCLATE 100 MG ORAL CAPSULE 5491158 DOXYCYCLINE HYCLATE Inactive SPIRONOLACTONE 25 MG ORAL TABLET TAKE 1/2 TABLET PO QD SPIRONOLACTONE 25 MG ORAL TABLET 015438 SPIRONOLACTONE Inactive GUAIFENESIN-CODEINE 100-10 MG/5ML ORAL SYRUP 1 tsp PO q6h PRN cough GUAIFENESIN-CODEINE 100-10 MG/5ML ORAL SYRUP 989253 GUAIFENESIN-CODEINE Inactive ZITHROMAX 250 MG ORAL TABLET 2 po today, then 1 po q days 2-5 ZITHROMAX 250 MG ORAL TABLET 965031 AZITHROMYCIN Inactive PREDNISONE 20 MG ORAL TABLET 2 tabs daily for 3 days, 1 tab daily for 3 days, 1/2 tab daily for 2 days PREDNISONE 20 MG ORAL TABLET 787578 PREDNISONE Inactive Vital Signs Date Name Value [...] mg/dL Encounters Code Encounter Date Provider Facility CPT-93251 Level 4 Est. Patient 08:42:09 CHURN OPERATOR Jakub Arciniega MD [facility] CPT-88543 Level 4 Est. Patient 14:50:56 CHURN OPERATOR Jakub Arciniega MD [facility] CPT-66648 Level 3 Est. Patient 13:49:04 CDT Jakub Arciniega MD [facility] CPT-44503 Level 3 Est. Patient 12:49:25 CHURN OPERATOR David Mercedes MD [facility] CPT-27484 Level 3 Est. Patient 20:50:49 CDT Jakub Arciniega MD [facility] CPT-90564 Level 3 Est. Patient 14:31:29 CDT Dimple García [facility] CPT-93850 Level 3 Est. Patient 21:23:01 CDT Leanne Olmos MD PhD [facility] CPT-04926 Level 3 Est. Patient 15:37:45 CHURN OPERATOR Jakub Arciniega MD [facility] CPT-95745 Level 3 Est. Patient 10:40:45 CHURN OPERATOR Jakub Arciniega MD [facility] CPT-86620 Level 3 Est. Patient 14:24:04 CDT Jakub Arciniega MD [facility] Procedures Code Procedure Name Date Entry Date Standard Description CPT-57334 Skin tag remov up to/=15 13:49:04 CDT CPT-28453 Knee 3V 17:10:15 CDT
--- OUTSIDE RECORDS SUMMARY | 2018-02-21 06:14 | XMS REPORT | Clinical Summary ---
Author Author Admin, ADAM Organization [facility] Address Unknown Phone Unavailable Allergies, Adverse [...] Premenopausal menorrhagia BMI 38-38.9 adult V85.38 Active Jakbu Arciniega MD Body Mass Index 38.0-38.9, adult BRONCHITIS-ACUTE ICD-466.0 Inactive Jakub Arciniega MD ROUTINE GYNECOLOGICAL EXAMINATION ICD-V72.31 Inactive Leanne Olmos MD PhD HEALTH SCREENING ICD-V70.0 Inactive Leanne Olmos MD PhD FATIGUE ICD-780.79 Inactive Leanne Olmos MD PhD SKIN RASH ICD-782.1 Inactive Leanne Olmos MD PhD Medication List Medication Instructions Start Date Stop Date Generic Name [facility] Status Provider Patient Instruction GUAIFENESIN-CODEINE 100-10 MG/5ML ORAL SYRUP 1 tsp PO q6h PRN cough GUAIFENESIN-CODEINE 04630777269 No Longer Active Jakub Arciniega MD Active SPIRONOLACTONE 25 MG ORAL TABLET TAKE 1/2 TABLET PO QD SPIRONOLACTONE 46906348240 No Longer Active Jakub Arciniega MD Active DOXYCYCLINE HYCLATE 100 MG ORAL CAPSULE TAKE 1 TABLET PO BID DOXYCYCLINE HYCLATE 85164186684 No Longer Active Jakub Arciniega MD Active HYDROCODONE-ACETAMINOPHEN 5-500 MG ORAL TABLET take 1 po Q 6 hours prn pain HYDROCODONE-ACETAMINOPHEN 67894965747 No Longer Active Jakub Arciniega MD Active BACTROBAN 2 % EXTERNAL OINTMENT 3 times daily for 14 days MUPIROCIN 05308910442 No Longer Active Jakub Arciniega MD Active CHERATUSSIN AC 100-10 MG/5ML ORAL SYRUP 1 tsp by mouth every 4 hours as needed for cough GUAIFENESIN-CODEINE 97054138575 No Longer Active Jakub Arciniega MD Active PREDNISONE 20 MG ORAL TABLET 2 tabs daily for 3 days, 1 tab daily for 3 days, 1/2 tab daily for 2 days PREDNISONE 01144311003 No Longer Active Jakub Arciniega MD Active ZITHROMAX 250 MG ORAL TABLET 2 po today, then 1 po q days 2-5 AZITHROMYCIN 93795345717 No Longer Active Jakub Arciniega MD Active SIMVASTATIN 20 MG ORAL TABLET 1 po daily SIMVASTATIN 94434251819 Active Jakub Arciniega MD Active CHERATUSSIN AC 100-10 MG/5ML ORAL SYRUP 1 tsp by mouth every 4 hours as needed for cough CHERATUSSIN AC 100-10 MG/5ML ORAL SYRUP 547877 GUAIFENESIN-CODEINE Inactive BACTROBAN 2 % EXTERNAL OINTMENT 3 times daily for 14 days BACTROBAN 2 % EXTERNAL OINTMENT 610376 MUPIROCIN Inactive HYDROCODONE-ACETAMINOPHEN 5-500 MG ORAL TABLET take 1 po Q 6 hours prn pain HYDROCODONE-ACETAMINOPHEN 5-500 MG ORAL TABLET 750816 HYDROCODONE-ACETAMINOPHEN Inactive DOXYCYCLINE HYCLATE 100 MG ORAL CAPSULE TAKE 1 TABLET PO BID DOXYCYCLINE HYCLATE 100 MG ORAL CAPSULE 1925449 DOXYCYCLINE HYCLATE Inactive SPIRONOLACTONE 25 MG ORAL TABLET TAKE 1/2 TABLET PO QD SPIRONOLACTONE 25 MG ORAL TABLET 980047 SPIRONOLACTONE Inactive GUAIFENESIN-CODEINE 100-10 MG/5ML ORAL SYRUP 1 tsp PO q6h PRN cough GUAIFENESIN-CODEINE 100-10 MG/5ML ORAL SYRUP 738588 GUAIFENESIN-CODEINE Inactive ZITHROMAX 250 MG ORAL TABLET 2 po today, then 1 po q days 2-5 ZITHROMAX 250 MG ORAL TABLET 144598 AZITHROMYCIN Inactive PREDNISONE 20 MG ORAL TABLET 2 tabs daily for 3 days, 1 tab daily for 3 days, 1/2 tab daily for 2 days PREDNISONE 20 MG ORAL TABLET 318737 PREDNISONE Inactive Vital Signs Date Name Value [...] mg/dL Encounters Code Encounter Date Provider Facility CPT-50477 Level 4 Est. Patient 08:42:09 GEOSCIENCES ASSOCIATE PROFESSOR Jakub Arciniega MD [facility] CPT-32309 Level 4 Est. Patient 14:50:56 GEOSCIENCES ASSOCIATE PROFESSOR Jakub Arciniega MD [facility] CPT-82346 Level 3 Est. Patient 13:49:04 CDT Jakub Arciniega MD [facility] CPT-48918 Level 3 Est. Patient 12:49:25 GEOSCIENCES ASSOCIATE PROFESSOR David Mercedes MD [facility] CPT-42961 Level 3 Est. Patient 20:50:49 CDT Jakub Arciniega MD [facility] CPT-41784 Level 3 Est. Patient 14:31:29 CDT Dimple García [facility] CPT-77624 Level 3 Est. Patient 21:23:01 CDT Leanne Olmos MD PhD [facility] CPT-22819 Level 3 Est. Patient 15:37:45 GEOSCIENCES ASSOCIATE PROFESSOR Jakub Arciniega MD [facility] CPT-61678 Level 3 Est. Patient 10:40:45 GEOSCIENCES ASSOCIATE PROFESSOR Jakub Arciniega MD [facility] CPT-46897 Level 3 Est. Patient 14:24:04 CDT Jakub Arciniega MD [facility] Procedures Code Procedure Name Date Entry Date Standard Description CPT-66086 Skin tag remov up to/=15 13:49:04 CDT CPT-97158 Knee 3V 17:10:15 CDT
--- OUTSIDE RECORDS SUMMARY | 2018-02-21 06:14 | XMS REPORT | Clinical Summary ---
Author Author Admin, ADAM Organization [facility] Address Unknown Phone Unavailable Allergies, Adverse [...] 1 tsp PO q6h PRN cough GUAIFENESIN-CODEINE [id number] No Longer Active Jakub Arciniega MD Active SPIRONOLACTONE 25 MG TABS TAKE 1/2 TABLET PO QD SPIRONOLACTONE 84269301550 No Longer Active Jakub Arciniega MD Active DOXYCYCLINE HYCLATE 100 MG CAPS TAKE 1 TABLET PO BID DOXYCYCLINE HYCLATE 66043195877 No Longer Active Jakub Arciniega MD Active HYDROCODONE-ACETAMINOPHEN 5-500 MG TABS take 1 po Q 6 hours prn pain HYDROCODONE-ACETAMINOPHEN 89810683269 No Longer Active Jakub Arciniega MD Active BACTROBAN 2 % OINT 3 times daily for 14 days MUPIROCIN 26759586240 No Longer Active Jakub Arciniega MD Active CHERATUSSIN AC 100-10 MG/5ML SYRP 1 tsp by mouth every 4 hours as needed for cough GUAIFENESIN-CODEINE 45630811225 No Longer Active Jakub Arciniega MD Active PREDNISONE 20 MG TAB 2 tabs daily for 3 days, 1 tab daily for 3 days, 1/2 tab daily for 2 days PREDNISONE 51556162347 No Longer Active Jakub Arciniega MD Active ZITHROMAX 250 MG TAB 2 po today, then 1 po q days 2-5 AZITHROMYCIN 66928188962 No Longer Active Jakub Arciniega MD Active SIMVASTATIN 20 MG TABS 1 po daily SIMVASTATIN 77129520373 Active Lashell Carney SALESPERSON [employer]ILES Active CHERATUSSIN AC 100-10 MG/5ML SYRP 1 tsp by mouth every 4 hours as needed for cough CHERATUSSIN AC 100-10 MG/5ML SYRP 035552 GUAIFENESIN-CODEINE Inactive BACTROBAN 2 % OINT 3 times daily for 14 days BACTROBAN 2 % OINT 992996 MUPIROCIN Inactive HYDROCODONE-ACETAMINOPHEN 5-500 MG TABS take 1 po Q 6 hours prn pain HYDROCODONE-ACETAMINOPHEN 5-500 MG TABS HYDROCODONE- ACETAMINOPHEN Inactive DOXYCYCLINE HYCLATE 100 MG CAPS TAKE 1 TABLET PO BID DOXYCYCLINE HYCLATE 100 MG CAPS 7257765 DOXYCYCLINE HYCLATE Inactive SPIRONOLACTONE 25 MG TABS TAKE 1/2 TABLET PO QD SPIRONOLACTONE 25 MG TABS 223651 SPIRONOLACTONE Inactive GUAIFENESIN-CODEINE 100-10 MG/5ML SYRP 1 tsp PO q6h PRN cough GUAIFENESIN-CODEINE 100-10 MG/5ML SYRP 434780 GUAIFENESIN-CODEINE Inactive ZITHROMAX 250 MG TAB 2 po today, then 1 po q days 2-5 ZITHROMAX 250 MG TAB 9555668 AZITHROMYCIN Inactive PREDNISONE 20 MG TAB 2 tabs daily for 3 days, 1 tab daily for 3 days, 1/2 tab daily for 2 days PREDNISONE 20 MG TAB 396613 PREDNISONE Inactive Encounters Code Encounter Date Provider Facility CPT-92734 Level 3 Est. Patient 13:49:04 CDT Jakub Arciniega MD [facility] CPT-11712 Level 3 Est. Patient 12:49:25 BOARD MACHINE SET UP OPERATOR David Mercedes MD [facility] CPT-17203 Level 3 Est. Patient 20:50:49 CDT Jakub Acriniega MD [facility] CPT-24373 Level 3 Est. Patient 14:31:29 CDT Dimple García [facility] CPT-68306 Level 3 Est. Patient 21:23:01 CDT Leanne Olmos MD PhD [facility] CPT-71022 Level 3 Est. Patient 15:37:45 BOARD MACHINE SET UP OPERATOR Jakub Arciniega MD [facility] CPT-51207 Level 3 Est. Patient 10:40:45 BOARD MACHINE SET UP OPERATOR Jakub Arciniega MD [facility] CPT-94391 Level 3 Est. Patient 14:24:04 CDT Jakub Arciniega MD [facility] Procedures Code Procedure Name Date Entry Date Standard Description CPT-11361 Skin tag remov up to/=15 13:49:04 CDT CPT-02915 Knee 3V 17:10:15 CDT
--- OUTSIDE RECORDS SUMMARY | 2018-02-21 06:15 | XMS REPORT | Clinical Summary ---
Author Author Admin, ADAM Organization [facility] Address Unknown Phone Unavailable Allergies, Adverse [...] Instructions Start Date Stop Date Generic Name [facility] Status Provider Patient Instruction GUAIFENESIN-CODEINE 100-10 MG/5ML ORAL SYRUP 1 tsp PO q6h PRN cough GUAIFENESIN-CODEINE 38464105163 No Longer Active Jakub Arciniega MD Active SPIRONOLACTONE 25 MG ORAL TABLET TAKE 1/2 TABLET PO QD SPIRONOLACTONE 20411621596 No Longer Active Jakub Arciniega MD Active DOXYCYCLINE HYCLATE 100 MG ORAL CAPSULE TAKE 1 TABLET PO BID DOXYCYCLINE HYCLATE 52598734764 No Longer Active Jakub Arciniega MD Active HYDROCODONE-ACETAMINOPHEN 5-500 MG ORAL TABLET take 1 po Q 6 hours prn pain HYDROCODONE-ACETAMINOPHEN 53860452994 No Longer Active Jakub Arciniega MD Active BACTROBAN 2 % EXTERNAL OINTMENT 3 times daily for 14 days MUPIROCIN 65833242009 No Longer Active Jakub Arciniega MD Active CHERATUSSIN AC 100-10 MG/5ML ORAL SYRUP 1 tsp by mouth every 4 hours as needed for cough GUAIFENESIN-CODEINE 71883770370 No Longer Active Jakub Arciniega MD Active PREDNISONE 20 MG ORAL TABLET 2 tabs daily for 3 days, 1 tab daily for 3 days, 1/2 tab daily for 2 days PREDNISONE 47014132161 No Longer Active Jakub Arciniega MD Active ZITHROMAX 250 MG ORAL TABLET 2 po today, then 1 po q days 2-5 AZITHROMYCIN 71191096325 No Longer Active Jakub Arciniega MD Active SIMVASTATIN 20 MG ORAL TABLET 1 po daily SIMVASTATIN 96193070758 Active Jakub Arciniega MD Active CHERATUSSIN AC 100-10 MG/5ML ORAL SYRUP 1 tsp by mouth every 4 hours as needed for cough CHERATUSSIN AC 100-10 MG/5ML ORAL SYRUP 622289 GUAIFENESIN-CODEINE Inactive BACTROBAN 2 % EXTERNAL OINTMENT 3 times daily for 14 days BACTROBAN 2 % EXTERNAL OINTMENT 504639 MUPIROCIN Inactive HYDROCODONE-ACETAMINOPHEN 5-500 MG ORAL TABLET take 1 po Q 6 hours prn pain HYDROCODONE-ACETAMINOPHEN 5-500 MG ORAL TABLET 108956 HYDROCODONE-ACETAMINOPHEN Inactive DOXYCYCLINE HYCLATE 100 MG ORAL CAPSULE TAKE 1 TABLET PO BID DOXYCYCLINE HYCLATE 100 MG ORAL CAPSULE 8817043 DOXYCYCLINE HYCLATE Inactive SPIRONOLACTONE 25 MG ORAL TABLET TAKE 1/2 TABLET PO QD SPIRONOLACTONE 25 MG ORAL TABLET 024370 SPIRONOLACTONE Inactive GUAIFENESIN-CODEINE 100-10 MG/5ML ORAL SYRUP 1 tsp PO q6h PRN cough GUAIFENESIN-CODEINE 100-10 MG/5ML ORAL SYRUP 539268 GUAIFENESIN-CODEINE Inactive ZITHROMAX 250 MG ORAL TABLET 2 po today, then 1 po q days 2-5 ZITHROMAX 250 MG ORAL TABLET 173645 AZITHROMYCIN Inactive PREDNISONE 20 MG ORAL TABLET 2 tabs daily for 3 days, 1 tab daily for 3 days, 1/2 tab daily for 2 days PREDNISONE 20 MG ORAL TABLET 608405 PREDNISONE Inactive Vital Signs Date Name Value [...] mg/dL Encounters Code Encounter Date Provider Facility CPT-58417 Level 4 Est. Patient 08:42:09 OUTBOARD MOTORBOAT RIGGER Jakub Arciniega MD [facility] CPT-03647 Level 4 Est. Patient 14:50:56 OUTBOARD MOTORBOAT RIGGER Jakub Arciniega MD [facility] CPT-71614 Level 3 Est. Patient 13:49:04 CDT Jakub Arciniega MD [facility] CPT-49859 Level 3 Est. Patient 12:49:25 OUTBOARD MOTORBOAT RIGGER David Mercedes MD [facility] CPT-14860 Level 3 Est. Patient 20:50:49 CDT Jakub Arciniega MD [facility] CPT-67826 Level 3 Est. Patient 14:31:29 CDT Dimple García [facility] CPT-59888 Level 3 Est. Patient 21:23:01 CDT Leanne Olmos MD PhD [facility] CPT-83287 Level 3 Est. Patient 15:37:45 OUTBOARD MOTORBOAT RIGGER Jakub Arciniega MD [facility] CPT-17060 Level 3 Est. Patient 10:40:45 OUTBOARD MOTORBOAT RIGGER Jakub Arciniega MD [facility] CPT-25579 Level 3 Est. Patient 14:24:04 CDT Jakub Arciniega MD [facility] Procedures Code Procedure Name Date Entry Date Standard Description CPT-19082 Skin tag remov up to/=15 13:49:04 CDT CPT-69470 Knee 3V 17:10:15 CDT
--- OUTSIDE RECORDS SUMMARY | 2018-02-21 06:15 | XMS REPORT | Clinical Summary ---
Author Author Admin, ADAM Organization [facility] Address Unknown Phone Unavailable Allergies, Adverse [...] gynecological examination HEALTH SCREENING V70.0 Resolved Leanne Oloms MD PhD Routine general medical examination at [...] 1 tsp PO q6h PRN cough GUAIFENESIN-CODEINE 45284215528 No Longer Active Jakub Arciniega MD Active SPIRONOLACTONE 25 MG TABS TAKE 1/2 TABLET PO QD SPIRONOLACTONE 00329678002 No Longer Active Jakub Arciniega MD Active DOXYCYCLINE HYCLATE 100 MG CAPS TAKE 1 TABLET PO BID DOXYCYCLINE HYCLATE 32633137260 No Longer Active Jakub Arciniega MD Active HYDROCODONE-ACETAMINOPHEN 5-500 MG TABS take 1 po Q 6 hours prn pain HYDROCODONE-ACETAMINOPHEN 03606071282 No Longer Active Jakub Arciniega MD Active BACTROBAN 2 % OINT 3 times daily for 14 days MUPIROCIN 35302581907 No Longer Active Jakub Arciniega MD Active CHERATUSSIN AC 100-10 MG/5ML SYRP 1 tsp by mouth every 4 hours as needed for cough GUAIFENESIN-CODEINE 58777676332 No Longer Active Jakub Arciniega MD Active PREDNISONE 20 MG TAB 2 tabs daily for 3 days, 1 tab daily for 3 days, 1/2 tab daily for 2 days PREDNISONE 69437205552 No Longer Active Jakub Arciniega MD Active ZITHROMAX 250 MG TAB 2 po today, then 1 po q days 2-5 AZITHROMYCIN 64987105449 No Longer Active Jakub Arciniega MD Active SIMVASTATIN 20 MG TABS 1 po daily SIMVASTATIN 32243913009 Active Jakub Arciniega MD Active CHERATUSSIN AC 100-10 MG/5ML SYRP 1 tsp by mouth every 4 hours as needed for cough CHERATUSSIN AC 100-10 MG/5ML SYRP 482900 GUAIFENESIN-CODEINE Inactive BACTROBAN 2 % OINT 3 times daily for 14 days BACTROBAN 2 % OINT 872846 MUPIROCIN Inactive HYDROCODONE-ACETAMINOPHEN 5-500 MG TABS take 1 po Q 6 hours prn pain HYDROCODONE-ACETAMINOPHEN 5-500 MG TABS HYDROCODONE- ACETAMINOPHEN Inactive DOXYCYCLINE HYCLATE 100 MG CAPS TAKE 1 TABLET PO BID DOXYCYCLINE HYCLATE 100 MG CAPS 4091122 DOXYCYCLINE HYCLATE Inactive SPIRONOLACTONE 25 MG TABS TAKE 1/2 TABLET PO QD SPIRONOLACTONE 25 MG TABS 317228 SPIRONOLACTONE Inactive GUAIFENESIN-CODEINE 100-10 MG/5ML SYRP 1 tsp PO q6h PRN cough GUAIFENESIN-CODEINE 100-10 MG/5ML SYRP 399691 GUAIFENESIN-CODEINE Inactive ZITHROMAX 250 MG TAB 2 po today, then 1 po q days 2-5 ZITHROMAX 250 MG TAB 9691941 AZITHROMYCIN Inactive PREDNISONE 20 MG TAB 2 tabs daily for 3 days, 1 tab daily for 3 days, 1/2 tab daily for 2 days PREDNISONE 20 MG TAB 520728 PREDNISONE Inactive Vital Signs Date Name Value [...] Measured Encounters Code Encounter Date Provider Facility CPT-52287 Level 3 Est. Patient 13:49:04 CDT Jakub Arciniega MD [facility] CPT-76104 Level 3 Est. Patient 12:49:25 PROCESS OWNER David Mercedes MD [facility] CPT-24841 Level 3 Est. Patient 20:50:49 CDT Jakub Arciniega MD [facility] CPT-50488 Level 3 Est. Patient 14:31:29 CDT Dimple García [facility] CPT-19738 Level 3 Est. Patient 21:23:01 CDT Leanne Olmos MD PhD [facility] CPT-26829 Level 3 Est. Patient 15:37:45 PROCESS OWNER Jakub Arciniega MD [facility] CPT-50335 Level 3 Est. Patient 10:40:45 PROCESS OWNER Jakub Arciniega MD [facility] CPT-26370 Level 3 Est. Patient 14:24:04 CDT Jakub Arciniega MD [facility] Procedures Code Procedure Name Date Entry Date Standard Description CPT-55813 Skin tag remov up to/=15 13:49:04 CDT CPT-04114 Knee 3V 17:10:15 CDT
--- OUTSIDE RECORDS SUMMARY | 2018-02-21 06:15 | XMS REPORT | Clinical Summary ---
Author Author Admin, ADAM Organization [facility] Address Unknown Phone Unavailable Allergies, Adverse Reactions, [...] 1 tsp PO q6h PRN cough GUAIFENESIN-CODEINE 48465903400 No Longer Active Jakub Arciniega MD Active SPIRONOLACTONE 25 MG TABS TAKE 1/2 TABLET PO QD SPIRONOLACTONE 92384125058 No Longer Active Jakub Arciniega MD Active DOXYCYCLINE HYCLATE 100 MG CAPS TAKE 1 TABLET PO BID DOXYCYCLINE HYCLATE 18000173885 No Longer Active Jakub Arciniega MD Active HYDROCODONE-ACETAMINOPHEN 5-500 MG TABS take 1 po Q 6 hours prn pain HYDROCODONE-ACETAMINOPHEN 00419489000 No Longer Active Jakub Arciniega MD Active BACTROBAN 2 % OINT 3 times daily for 14 days MUPIROCIN 58872331205 No Longer Active Jakub Arciniega MD Active CHERATUSSIN AC 100-10 MG/5ML SYRP 1 tsp by mouth every 4 hours as needed for cough GUAIFENESIN-CODEINE 74444942449 No Longer Active Jakub rAciniega MD Active PREDNISONE 20 MG TAB 2 tabs daily for 3 days, 1 tab daily for 3 days, 1/2 tab daily for 2 days PREDNISONE 69602439810 No Longer Active Jakub Arciniega MD Active ZITHROMAX 250 MG TAB 2 po today, then 1 po q days 2-5 AZITHROMYCIN 01530050757 No Longer Active Jakub Arciniega MD Active SIMVASTATIN 20 MG TABS 1 po daily SIMVASTATIN 94584782353 Active Jakub Arciniega MD Active CHERATUSSIN AC 100-10 MG/5ML SYRP 1 tsp by mouth every 4 hours as needed for cough CHERATUSSIN AC 100-10 MG/5ML SYRP 164200 GUAIFENESIN-CODEINE Inactive BACTROBAN 2 % OINT 3 times daily for 14 days BACTROBAN 2 % OINT 212703 MUPIROCIN Inactive HYDROCODONE-ACETAMINOPHEN 5-500 MG TABS take 1 po Q 6 hours prn pain HYDROCODONE-ACETAMINOPHEN 5-500 MG TABS HYDROCODONE- ACETAMINOPHEN Inactive DOXYCYCLINE HYCLATE 100 MG CAPS TAKE 1 TABLET PO BID DOXYCYCLINE HYCLATE 100 MG CAPS 6247912 DOXYCYCLINE HYCLATE Inactive SPIRONOLACTONE 25 MG TABS TAKE 1/2 TABLET PO QD SPIRONOLACTONE 25 MG TABS 645946 SPIRONOLACTONE Inactive GUAIFENESIN-CODEINE 100-10 MG/5ML SYRP 1 tsp PO q6h PRN cough GUAIFENESIN-CODEINE 100-10 MG/5ML SYRP 006020 GUAIFENESIN-CODEINE Inactive ZITHROMAX 250 MG TAB 2 po today, then 1 po q days 2-5 ZITHROMAX 250 MG TAB 4545190 AZITHROMYCIN Inactive PREDNISONE 20 MG TAB 2 tabs daily for 3 days, 1 tab daily for 3 days, 1/2 tab daily for 2 days PREDNISONE 20 MG TAB 810645 PREDNISONE Inactive Vital Signs Date Name Value [...] Measured Encounters Code Encounter Date Provider Facility CPT-98064 Level 3 Est. Patient 13:49:04 CDT Jakub Arciniega MD [facility] CPT-14007 Level 3 Est. Patient 12:49:25 ARCHITECTURAL SUPERINTENDENT David Mercedes MD [facility] CPT-78957 Level 3 Est. Patient 20:50:49 CDT Jakub Arciniega MD [facility] CPT-25175 Level 3 Est. Patient 14:31:29 CDT Dimple García [facility] CPT-39523 Level 3 Est. Patient 21:23:01 CDT Leanne Olmos MD PhD [facility] CPT-75796 Level 3 Est. Patient 15:37:45 ARCHITECTURAL SUPERINTENDENT Jakub Arciniega MD [facility] CPT-45117 Level 3 Est. Patient 10:40:45 ARCHITECTURAL SUPERINTENDENT Jakub Arciniega MD [facility] CPT-36602 Level 3 Est. Patient 14:24:04 CDT Jakub Arciniega MD [facility] Procedures Code Procedure Name Date Entry Date Standard Description CPT-57765 Skin tag remov up to/=15 13:49:04 CDT CPT-42978 Knee 3V 17:10:15 CDT
--- OUTSIDE RECORDS SUMMARY | 2018-02-21 06:15 | XMS REPORT | Clinical Summary ---
Author Author Admin, ADAM Organization [facility] Address Unknown Phone Unavailable Allergies, Adverse [...] skin BRONCHITIS-ACUTE ICD-466.0 Inactive Jakub Arciniega MD HEALTH SCREENING ICD-V70.0 Inactive Leanne Olmos MD PhD FATIGUE ICD-780.79 Inactive Leanne Olmos MD PhD SKIN RASH ICD-782.1 Inactive Leanne Olmos MD PhD ROUTINE GYNECOLOGICAL EXAMINATION ICD-V72.31 Inactive Leanne Olmos MD PhD Medication List Medication Instructions Start Date Stop Date Generic Name NDC Status Provider Patient Instruction GUAIFENESIN-CODEINE 100-10 MG/5ML SYRP 1 tsp PO q6h PRN cough GUAIFENESIN-CODEINE 39727375756 No Longer Active Jakub Arciniega MD Active SPIRONOLACTONE 25 MG TABS TAKE 1/2 TABLET PO QD SPIRONOLACTONE 53440764825 No Longer Active Jakub Arciniega MD Active DOXYCYCLINE HYCLATE 100 MG CAPS TAKE 1 TABLET PO BID DOXYCYCLINE HYCLATE 28449876712 No Longer Active Jakub Arciniega MD Active HYDROCODONE-ACETAMINOPHEN 5-500 MG TABS take 1 po Q 6 hours prn pain HYDROCODONE-ACETAMINOPHEN 05153452200 No Longer Active Jakub Arciniega MD Active BACTROBAN 2 % OINT 3 times daily for 14 days MUPIROCIN 67483253611 No Longer Active Jakub Arciniega MD Active CHERATUSSIN AC 100-10 MG/5ML SYRP 1 tsp by mouth every 4 hours as needed for cough GUAIFENESIN-CODEINE 85707147796 No Longer Active Jakub Arciniega MD Active PREDNISONE 20 MG TAB 2 tabs daily for 3 days, 1 tab daily for 3 days, 1/2 tab daily for 2 days PREDNISONE 16936644774 No Longer Active Jakub Arciniega MD Active ZITHROMAX 250 MG TAB 2 po today, then 1 po q days 2-5 AZITHROMYCIN 17730163871 No Longer Active Jakub Arciniega MD Active SIMVASTATIN 20 MG TABS 1 po daily SIMVASTATIN 04064008222 Active Jakub Arciniega MD Active CHERATUSSIN AC 100-10 MG/5ML SYRP 1 tsp by mouth every 4 hours as needed for cough CHERATUSSIN AC 100-10 MG/5ML SYRP 752902 GUAIFENESIN-CODEINE Inactive BACTROBAN 2 % OINT 3 times daily for 14 days BACTROBAN 2 % OINT 320701 MUPIROCIN Inactive HYDROCODONE-ACETAMINOPHEN 5-500 MG TABS take 1 po Q 6 hours prn pain HYDROCODONE-ACETAMINOPHEN 5-500 MG TABS HYDROCODONE- ACETAMINOPHEN Inactive DOXYCYCLINE HYCLATE 100 MG CAPS TAKE 1 TABLET PO BID DOXYCYCLINE HYCLATE 100 MG CAPS 6928872 DOXYCYCLINE HYCLATE Inactive SPIRONOLACTONE 25 MG TABS TAKE 1/2 TABLET PO QD SPIRONOLACTONE 25 MG TABS 011413 SPIRONOLACTONE Inactive GUAIFENESIN-CODEINE 100-10 MG/5ML SYRP 1 tsp PO q6h PRN cough GUAIFENESIN-CODEINE 100-10 MG/5ML SYRP 814660 GUAIFENESIN-CODEINE Inactive ZITHROMAX 250 MG TAB 2 po today, then 1 po q days 2-5 ZITHROMAX 250 MG TAB 7799121 AZITHROMYCIN Inactive PREDNISONE 20 MG TAB 2 tabs daily for 3 days, 1 tab daily for 3 days, 1/2 tab daily for 2 days PREDNISONE 20 MG TAB 815287 PREDNISONE Inactive Vital Signs Date Name Value [...] mg/dL Encounters Code Encounter Date Provider Facility CPT-58678 Level 4 Est. Patient 14:50:56 REGIONAL FACILITIES MANAGER Jakub Arciniega MD [facility] CPT-76362 Level 3 Est. Patient 13:49:04 CDT Jakub Arciniega MD [facility] CPT-54325 Level 3 Est. Patient 12:49:25 REGIONAL FACILITIES MANAGER David Mercedes MD [facility] CPT-30975 Level 3 Est. Patient 20:50:49 CDT Jakub Arciniega MD [facility] CPT-49868 Level 3 Est. Patient 14:31:29 CDT Dimple García [facility] CPT-46152 Level 3 Est. Patient 21:23:01 CDT Leanne Olmos MD PhD [facility] CPT-44317 Level 3 Est. Patient 15:37:45 REGIONAL FACILITIES MANAGER Jakub Arciniega MD [facility] CPT-79789 Level 3 Est. Patient 10:40:45 REGIONAL FACILITIES MANAGER Jakub Arciniega MD [facility] CPT-76585 Level 3 Est. Patient 14:24:04 CDT Jakub Arciniega MD [facility] Procedures Code Procedure Name Date Entry Date Standard Description CPT-97317 Skin tag remov up to/=15 13:49:04 CDT CPT-41457 Knee 3V 17:10:15 CDT
--- OUTSIDE RECORDS SUMMARY | 2018-02-21 06:15 | XMS REPORT | Clinical Summary ---
Author Author Admin, ADAM Organization [facility] Address Unknown Phone Unavailable Allergies, Adverse Reactions, [...] lower leg Dermatitis, face 692.9 Active Jakub Acriniega MD Contact dermatitis and other eczema, unspecified [...] 1 tsp PO q6h PRN cough GUAIFENESIN-CODEINE 21834798410 No Longer Active Jakub Arciniega MD Active SPIRONOLACTONE 25 MG TABS TAKE 1/2 TABLET PO QD SPIRONOLACTONE 61709683452 No Longer Active Jakub Arcinigea MD Active DOXYCYCLINE HYCLATE 100 MG CAPS TAKE 1 TABLET PO BID DOXYCYCLINE HYCLATE 82807134585 No Longer Active Jakub Arciniega MD Active HYDROCODONE-ACETAMINOPHEN 5-500 MG TABS take 1 po Q 6 hours prn pain HYDROCODONE-ACETAMINOPHEN 70280592718 No Longer Active Jakub Arciniega MD Active BACTROBAN 2 % OINT 3 times daily for 14 days MUPIROCIN 07929971328 No Longer Active Jakub Arciniega MD Active CHERATUSSIN AC 100-10 MG/5ML SYRP 1 tsp by mouth every 4 hours as needed for cough GUAIFENESIN-CODEINE 59721499070 No Longer Active Jakub Arciniega MD Active PREDNISONE 20 MG TAB 2 tabs daily for 3 days, 1 tab daily for 3 days, 1/2 tab daily for 2 days PREDNISONE 06188736263 No Longer Active Jakub Arciniega MD Active ZITHROMAX 250 MG TAB 2 po today, then 1 po q days 2-5 AZITHROMYCIN 33806281167 No Longer Active Jakub Arciniega MD Active SIMVASTATIN 20 MG TABS 1 po daily SIMVASTATIN 48201396962 Active Lashell Carney PROPULSION GENERATOR REPAIRER Active CHERATUSSIN AC 100-10 MG/5ML SYRP 1 tsp by mouth every 4 hours as needed for cough CHERATUSSIN AC 100-10 MG/5ML SYRP 457447 GUAIFENESIN-CODEINE Inactive BACTROBAN 2 % OINT 3 times daily for 14 days BACTROBAN 2 % OINT 157904 MUPIROCIN Inactive HYDROCODONE-ACETAMINOPHEN 5-500 MG TABS take 1 po Q 6 hours prn pain HYDROCODONE-ACETAMINOPHEN 5-500 MG TABS HYDROCODONE- ACETAMINOPHEN Inactive DOXYCYCLINE HYCLATE 100 MG CAPS TAKE 1 TABLET PO BID DOXYCYCLINE HYCLATE 100 MG CAPS 4865359 DOXYCYCLINE HYCLATE Inactive SPIRONOLACTONE 25 MG TABS TAKE 1/2 TABLET PO QD SPIRONOLACTONE 25 MG TABS 107924 SPIRONOLACTONE Inactive GUAIFENESIN-CODEINE 100-10 MG/5ML SYRP 1 tsp PO q6h PRN cough GUAIFENESIN-CODEINE 100-10 MG/5ML SYRP 817899 GUAIFENESIN-CODEINE Inactive ZITHROMAX 250 MG TAB 2 po today, then 1 po q days 2-5 ZITHROMAX 250 MG TAB 4821872 AZITHROMYCIN Inactive PREDNISONE 20 MG TAB 2 tabs daily for 3 days, 1 tab daily for 3 days, 1/2 tab daily for 2 days PREDNISONE 20 MG TAB 828269 PREDNISONE Inactive Encounters Code Encounter Date Provider Facility CPT-33848 Level 3 Est. Patient 13:49:04 CDT Jakub Arciniega MD [facility] CPT-86671 Level 3 Est. Patient 12:49:25 STOCK ROLLER David Mercedes MD [facility] CPT-86630 Level 3 Est. Patient 20:50:49 CDT Jakub Arciniega MD [facility] CPT-38823 Level 3 Est. Patient 14:31:29 CDT Dimple García [facility] CPT-89409 Level 3 Est. Patient 21:23:01 CDT Leanne Olmos MD PhD [facility] CPT-23913 Level 3 Est. Patient 15:37:45 STOCK ROLLER Jakub Arciniega MD [facility] CPT-46529 Level 3 Est. Patient 10:40:45 STOCK ROLLER Jakub Arciniega MD [facility] CPT-64300 Level 3 Est. Patient 14:24:04 CDT Jakub Arciniega MD [facility] Procedures Code Procedure Name Date Entry Date Standard Description CPT-74724 Skin tag remov up to/=15 13:49:04 CDT CPT-82741 Knee 3V 17:10:15 CDT
--- OUTSIDE RECORDS SUMMARY | 2018-02-21 06:15 | XMS REPORT | Clinical Summary ---
Author Author Admin, ADAM Organization [facility] Address Unknown Phone Unavailable Allergies, Adverse Reactions, [...] Instructions Start Date Stop Date Generic Name [facility] Status Provider Patient Instruction GUAIFENESIN-CODEINE 100-10 MG/5ML ORAL SYRUP 1 tsp PO q6h PRN cough GUAIFENESIN-CODEINE [id number] No Longer Active Jakub Arciniega MD Active SPIRONOLACTONE 25 MG ORAL TABLET TAKE 1/2 TABLET PO QD SPIRONOLACTONE 93087671417 No Longer Active Jakub Arciniega MD Active DOXYCYCLINE HYCLATE 100 MG ORAL CAPSULE TAKE 1 TABLET PO BID DOXYCYCLINE HYCLATE 95001044972 No Longer Active Jakub Arciniega MD Active HYDROCODONE-ACETAMINOPHEN 5-500 MG ORAL TABLET take 1 po Q 6 hours prn pain HYDROCODONE-ACETAMINOPHEN 77860677821 No Longer Active Jakub Arciniega MD Active BACTROBAN 2 % EXTERNAL OINTMENT 3 times daily for 14 days MUPIROCIN 39435875047 No Longer Active Jakub Arciniega MD Active CHERATUSSIN AC 100-10 MG/5ML ORAL SYRUP 1 tsp by mouth every 4 hours as needed for cough GUAIFENESIN-CODEINE 07049120752 No Longer Active Jakub Arciniega MD Active PREDNISONE 20 MG ORAL TABLET 2 tabs daily for 3 days, 1 tab daily for 3 days, 1/2 tab daily for 2 days PREDNISONE 47904741136 No Longer Active Jakub Arciniega MD Active ZITHROMAX 250 MG ORAL TABLET 2 po today, then 1 po q days 2-5 AZITHROMYCIN 63980507947 No Longer Active Jakub Arciniega MD Active SIMVASTATIN 20 MG ORAL TABLET 1 po daily SIMVASTATIN 97665361872 Active Jakub Arciniega MD Active BACTROBAN 2 % EXTERNAL OINTMENT 3 times daily for 14 days BACTROBAN 2 % EXTERNAL OINTMENT 811425 MUPIROCIN Inactive CHERATUSSIN AC 100-10 MG/5ML ORAL SYRUP 1 tsp by mouth every 4 hours as needed for cough CHERATUSSIN AC 100-10 MG/5ML ORAL SYRUP 387811 GUAIFENESIN-CODEINE Inactive DOXYCYCLINE HYCLATE 100 MG ORAL CAPSULE TAKE 1 TABLET PO BID DOXYCYCLINE HYCLATE 100 MG ORAL CAPSULE 9531018 DOXYCYCLINE HYCLATE Inactive PREDNISONE 20 MG ORAL TABLET 2 tabs daily for 3 days, 1 tab daily for 3 days, 1/2 tab daily for 2 days PREDNISONE 20 MG ORAL TABLET 838389 PREDNISONE Inactive SPIRONOLACTONE 25 MG ORAL TABLET TAKE 1/2 TABLET PO QD SPIRONOLACTONE 25 MG ORAL TABLET 004151 SPIRONOLACTONE Inactive HYDROCODONE-ACETAMINOPHEN 5-500 MG ORAL TABLET take 1 po Q 6 hours prn pain HYDROCODONE-ACETAMINOPHEN 5-500 MG ORAL TABLET 031771 HYDROCODONE-ACETAMINOPHEN Inactive ZITHROMAX 250 MG ORAL TABLET 2 po today, then 1 po q days 2-5 ZITHROMAX 250 MG ORAL TABLET 375118 AZITHROMYCIN Inactive GUAIFENESIN-CODEINE 100-10 MG/5ML ORAL SYRUP 1 tsp PO q6h PRN cough GUAIFENESIN-CODEINE 100-10 MG/5ML ORAL SYRUP 627477 GUAIFENESIN-CODEINE Inactive Vital Signs Date Name Value Unit [...] mg/dL Encounters Code Encounter Date Provider Facility CPT-95434 Level 4 Est. Patient 08:42:09 WEAPONS MECHANIC Jakub Arciniega MD [facility] CPT-72744 Level 4 Est. Patient 14:50:56 WEAPONS MECHANIC Jakub Arciniega MD [facility] CPT-01738 Level 3 Est. Patient 13:49:04 CDT Jakub Arciniega MD [facility] CPT-10790 Level 3 Est. Patient 12:49:25 WEAPONS MECHANIC David Mercedes MD [facility] CPT-39577 Level 3 Est. Patient 20:50:49 CDT Jakub Arciniega MD [facility] CPT-80424 Level 3 Est. Patient 14:31:29 CDT Dimple García [facility] CPT-48785 Level 3 Est. Patient 21:23:01 CDT Leanne Olmos MD PhD [facility] CPT-69833 Level 3 Est. Patient 15:37:45 WEAPONS MECHANIC Jakub Arciniega MD [facility] CPT-73937 Level 3 Est. Patient 10:40:45 WEAPONS MECHANIC Jakub Arciniega MD [facility] CPT-05637 Level 3 Est. Patient 14:24:04 CDT Jakub Arciniega MD [facility] Procedures Code Procedure Name Date Entry Date Standard Description CPT-56338 Skin tag remov up to/=15 13:49:04 CDT CPT-21414 Knee 3V 17:10:15 CDT
--- OUTSIDE RECORDS SUMMARY | 2018-02-21 06:16 | XMS REPORT | Clinical Summary ---
Author Author Admin, ADAM Organization [facility] Address Unknown Phone Unavailable Allergies, Adverse [...] 1 tsp PO q6h PRN cough GUAIFENESIN-CODEINE 78660557692 No Longer Active Jakub Arciniega MD Active SPIRONOLACTONE 25 MG ORAL TABLET TAKE 1/2 TABLET PO QD SPIRONOLACTONE 27638503691 No Longer Active Jakub Arciniega MD Active DOXYCYCLINE HYCLATE 100 MG ORAL CAPSULE TAKE 1 TABLET PO BID DOXYCYCLINE HYCLATE 83581774873 No Longer Active Jakub Arciniega MD Active HYDROCODONE-ACETAMINOPHEN 5-500 MG ORAL TABLET take 1 po Q 6 hours prn pain HYDROCODONE-ACETAMINOPHEN 79053361791 No Longer Active Jakub Arciniega MD Active BACTROBAN 2 % EXTERNAL OINTMENT 3 times daily for 14 days MUPIROCIN 08369350233 No Longer Active Jakub Arciniega MD Active CHERATUSSIN AC 100-10 MG/5ML ORAL SYRUP 1 tsp by mouth every 4 hours as needed for cough GUAIFENESIN-CODEINE 03554495017 No Longer Active Jakub Arciniega MD Active PREDNISONE 20 MG ORAL TABLET 2 tabs daily for 3 days, 1 tab daily for 3 days, 1/2 tab daily for 2 days PREDNISONE 48899677612 No Longer Active Jakub Arciniega MD Active ZITHROMAX 250 MG ORAL TABLET 2 po today, then 1 po q days 2-5 AZITHROMYCIN 79671577698 No Longer Active Jakub Arciniega MD Active SIMVASTATIN 20 MG ORAL TABLET 1 po daily SIMVASTATIN 76265517714 Active Jakub Arciniega MD Active CHERATUSSIN AC 100-10 MG/5ML ORAL SYRUP 1 tsp by mouth every 4 hours as needed for cough CHERATUSSIN AC 100-10 MG/5ML ORAL SYRUP 279791 GUAIFENESIN-CODEINE Inactive BACTROBAN 2 % EXTERNAL OINTMENT 3 times daily for 14 days BACTROBAN 2 % EXTERNAL OINTMENT 665330 MUPIROCIN Inactive HYDROCODONE-ACETAMINOPHEN 5-500 MG ORAL TABLET take 1 po Q 6 hours prn pain HYDROCODONE-ACETAMINOPHEN 5-500 MG ORAL TABLET 457755 HYDROCODONE-ACETAMINOPHEN Inactive DOXYCYCLINE HYCLATE 100 MG ORAL CAPSULE TAKE 1 TABLET PO BID DOXYCYCLINE HYCLATE 100 MG ORAL CAPSULE 3906887 DOXYCYCLINE HYCLATE Inactive SPIRONOLACTONE 25 MG ORAL TABLET TAKE 1/2 TABLET PO QD SPIRONOLACTONE 25 MG ORAL TABLET 149163 SPIRONOLACTONE Inactive GUAIFENESIN-CODEINE 100-10 MG/5ML ORAL SYRUP 1 tsp PO q6h PRN cough GUAIFENESIN-CODEINE 100-10 MG/5ML ORAL SYRUP 983811 GUAIFENESIN-CODEINE Inactive ZITHROMAX 250 MG ORAL TABLET 2 po today, then 1 po q days 2-5 ZITHROMAX 250 MG ORAL TABLET 224346 AZITHROMYCIN Inactive PREDNISONE 20 MG ORAL TABLET 2 tabs daily for 3 days, 1 tab daily for 3 days, 1/2 tab daily for 2 days PREDNISONE 20 MG ORAL TABLET 067823 PREDNISONE Inactive Vital Signs Date Name Value Unit Range Description blood pressure, diastolic 102 mm[Hg] BP woodard blood pressure, systolic 138 mm[Hg] BP sys pulse rate E&M 59 /min Heart rate temperature E&M 98.4 [degF] Body temperature weight E&M 230.5 [lb_av] Weight Measured Diagnostic Results Date Name Value Unit Range Description Office Visit: Med check up - Basic LDL target level 160 mg/dL Office Visit: Med check up - Chemistry HDL cholesterol, serum, target level 40 mg/dL triglyceride, target level 150 mg/dL cholesterol, target level 200 mg/dL Encounters Code Encounter Date Provider Facility CPT-97225 Level 4 Est. Patient 14:50:56 STAINED GLASS WINDOW DESIGNER Jakub Arciniega MD [facility] CPT-51652 Level 3 Est. Patient 13:49:04 CDT Jakub Arciniega MD [facility] CPT-85984 Level 3 Est. Patient 12:49:25 STAINED GLASS WINDOW DESIGNER David Mercedes MD [facility] CPT-55410 Level 3 Est. Patient 20:50:49 CDT Jakub Arciniega MD [facility] CPT-91915 Level 3 Est. Patient 14:31:29 CDT Dimple García [facility] CPT-88574 Level 3 Est. Patient 21:23:01 CDT Leanne Olmos MD PhD [facility] CPT-35550 Level 3 Est. Patient 15:37:45 STAINED GLASS WINDOW DESIGNER Jakub Arciniega MD [facility] CPT-72295 Level 3 Est. Patient 10:40:45 STAINED GLASS WINDOW DESIGNER Jakub Arciniega MD [facility] CPT-43356 Level 3 Est. Patient 14:24:04 CDT Jakub Arciniega MD [facility] Procedures Code Procedure Name Date Entry Date Standard Description CPT-57102 Skin tag remov up to/=15 13:49:04 CDT CPT-89228 Knee 3V 17:10:15 CDT
--- OUTSIDE RECORDS SUMMARY | 2018-02-21 06:16 | XMS REPORT | Clinical Summary ---
Author Author Admin, ADAM Organization [facility] Address Unknown Phone Unavailable Allergies, Adverse Reactions, [...] 1 tsp PO q6h PRN cough GUAIFENESIN-CODEINE 13584155478 No Longer Active Jakub Arciniega MD Active SPIRONOLACTONE 25 MG TABS TAKE 1/2 TABLET PO QD SPIRONOLACTONE 90722834882 No Longer Active Jakub Arciniega MD Active DOXYCYCLINE HYCLATE 100 MG CAPS TAKE 1 TABLET PO BID DOXYCYCLINE HYCLATE 02689995202 No Longer Active Jakub Arciniega MD Active HYDROCODONE-ACETAMINOPHEN 5-500 MG TABS take 1 po Q 6 hours prn pain HYDROCODONE-ACETAMINOPHEN 92943715312 No Longer Active Jakub Arciniega MD Active BACTROBAN 2 % OINT 3 times daily for 14 days MUPIROCIN 01807457968 No Longer Active Jakub Arciniega MD Active CHERATUSSIN AC 100-10 MG/5ML SYRP 1 tsp by mouth every 4 hours as needed for cough GUAIFENESIN-CODEINE 17268700981 No Longer Active Jakub Arciniega MD Active PREDNISONE 20 MG TAB 2 tabs daily for 3 days, 1 tab daily for 3 days, 1/2 tab daily for 2 days PREDNISONE 97326089952 No Longer Active Jakub Arciniega MD Active ZITHROMAX 250 MG TAB 2 po today, then 1 po q days 2-5 AZITHROMYCIN 55438132132 No Longer Active Jakub Arciniega MD Active SIMVASTATIN 20 MG TABS 1 po daily SIMVASTATIN 54680389869 Active Lashell Carney FUNERAL SERVICE PRACTITIONER/EMBALMER Active CHERATUSSIN AC 100-10 MG/5ML SYRP 1 tsp by mouth every 4 hours as needed for cough CHERATUSSIN AC 100-10 MG/5ML SYRP 320803 GUAIFENESIN-CODEINE Inactive BACTROBAN 2 % OINT 3 times daily for 14 days BACTROBAN 2 % OINT 764890 MUPIROCIN Inactive HYDROCODONE-ACETAMINOPHEN 5-500 MG TABS take 1 po Q 6 hours prn pain HYDROCODONE-ACETAMINOPHEN 5-500 MG TABS HYDROCODONE- ACETAMINOPHEN Inactive DOXYCYCLINE HYCLATE 100 MG CAPS TAKE 1 TABLET PO BID DOXYCYCLINE HYCLATE 100 MG CAPS 9267919 DOXYCYCLINE HYCLATE Inactive SPIRONOLACTONE 25 MG TABS TAKE 1/2 TABLET PO QD SPIRONOLACTONE 25 MG TABS 287004 SPIRONOLACTONE Inactive GUAIFENESIN-CODEINE 100-10 MG/5ML SYRP 1 tsp PO q6h PRN cough GUAIFENESIN-CODEINE 100-10 MG/5ML SYRP 163038 GUAIFENESIN-CODEINE Inactive ZITHROMAX 250 MG TAB 2 po today, then 1 po q days 2-5 ZITHROMAX 250 MG TAB 9666581 AZITHROMYCIN Inactive PREDNISONE 20 MG TAB 2 tabs daily for 3 days, 1 tab daily for 3 days, 1/2 tab daily for 2 days PREDNISONE 20 MG TAB 818252 PREDNISONE Inactive Encounters Code Encounter Date Provider Facility CPT-53074 Level 3 Est. Patient 13:49:04 CDT Jakub Arciniega MD [facility] CPT-06978 Level 3 Est. Patient 12:49:25 MEDICAL UNIT SECRETARY David Mercedes MD [facility] CPT-38932 Level 3 Est. Patient 20:50:49 CDT Jakub Arciniega MD [facility] CPT-63744 Level 3 Est. Patient 14:31:29 CDT Dimple García [facility] CPT-86109 Level 3 Est. Patient 21:23:01 CDT Leanne Olmos MD PhD [facility] CPT-60830 Level 3 Est. Patient 15:37:45 MEDICAL UNIT SECRETARY Jakub Arciniega MD [facility] CPT-82542 Level 3 Est. Patient 10:40:45 MEDICAL UNIT SECRETARY Jakub Arciniega MD [facility] CPT-11108 Level 3 Est. Patient 14:24:04 CDT Jkaub Arciniega MD [facility] Procedures Code Procedure Name Date Entry Date Standard Description CPT-38996 Skin tag remov up to/=15 13:49:04 CDT CPT-99754 Knee 3V 17:10:15 CDT
--- OUTSIDE RECORDS SUMMARY | 2018-02-21 06:16 | XMS REPORT | Clinical Summary ---
Author Author Admin, ADAM Organization [facility] Address Unknown Phone Unavailable Allergies, Adverse [...] cause Upper respiratory infection 465.9 Active David Mrecedes MD Acute upper respiratory infections of unspecified [...] 1 tsp PO q6h PRN cough GUAIFENESIN-CODEINE 15052912306 Active David Mercedes MD Active SPIRONOLACTONE 25 MG TABS TAKE 1/2 TABLET PO QD SPIRONOLACTONE 19548491252 No Longer Active Jakub Arciniega MD Active DOXYCYCLINE HYCLATE 100 MG CAPS TAKE 1 TABLET PO BID DOXYCYCLINE HYCLATE 97087236747 No Longer Active Jakub Arciniega MD Active HYDROCODONE-ACETAMINOPHEN 5-500 MG TABS take 1 po Q 6 hours prn pain HYDROCODONE-ACETAMINOPHEN 00927771010 No Longer Active Jakub Arciniega MD Active BACTROBAN 2 % OINT 3 times daily for 14 days MUPIROCIN 17915903704 No Longer Active Jakub Arciniega MD Active CHERATUSSIN AC 100-10 MG/5ML SYRP 1 tsp by mouth every 4 hours as needed for cough GUAIFENESIN-CODEINE 27763379254 No Longer Active Jakub Arciniega MD Active PREDNISONE 20 MG TAB 2 tabs daily for 3 days, 1 tab daily for 3 days, 1/2 tab daily for 2 days PREDNISONE 45113206352 No Longer Active Jakub Arciniega MD Active ZITHROMAX 250 MG TAB 2 po today, then 1 po q days 2-5 AZITHROMYCIN 93745699126 No Longer Active Jakub Arciniega MD Active SIMVASTATIN 20 MG TABS 1 po daily SIMVASTATIN 09310483723 Active Jakub Arciniega MD Active CHERATUSSIN AC 100-10 MG/5ML SYRP 1 tsp by mouth every 4 hours as needed for cough CHERATUSSIN AC 100-10 MG/5ML SYRP 140889 GUAIFENESIN-CODEINE Inactive BACTROBAN 2 % OINT 3 times daily for 14 days BACTROBAN 2 % OINT 579542 MUPIROCIN Inactive HYDROCODONE-ACETAMINOPHEN 5-500 MG TABS take 1 po Q 6 hours prn pain HYDROCODONE-ACETAMINOPHEN 5-500 MG TABS HYDROCODONE- ACETAMINOPHEN Inactive DOXYCYCLINE HYCLATE 100 MG CAPS TAKE 1 TABLET PO BID DOXYCYCLINE HYCLATE 100 MG CAPS 589977 DOXYCYCLINE HYCLATE Inactive SPIRONOLACTONE 25 MG TABS TAKE 1/2 TABLET PO QD SPIRONOLACTONE 25 MG TABS 977819 SPIRONOLACTONE Inactive ZITHROMAX 250 MG TAB 2 po today, then 1 po q days 2-5 ZITHROMAX 250 MG TAB 1013433 AZITHROMYCIN Inactive PREDNISONE 20 MG TAB 2 tabs daily for 3 days, 1 tab daily for 3 days, 1/2 tab daily for 2 days PREDNISONE 20 MG TAB 475147 PREDNISONE Inactive Vital Signs Date Name Value [...] 10*3/mm3 Encounters Code Encounter Date Provider Facility CPT-84421 Level 3 Est. Patient 12:49:25 SAFETY SEALER David Mercedes MD [facility] CPT-41299 Level 3 Est. Patient 20:50:49 CDT Jakub Arciniega MD [facility] CPT-60181 Level 3 Est. Patient 14:31:29 CDT Dimple García [facility] CPT-36585 Level 3 Est. Patient 21:23:01 CDT Leanne Olmos MD PhD [facility] CPT-43785 Level 3 Est. Patient 15:37:45 SAFETY SEALER Jakub Arciniega MD [facility] CPT-66662 Level 3 Est. Patient 10:40:45 SAFETY SEALER Jakub Arciniega MD [facility] CPT-58872 Level 3 Est. Patient 14:24:04 CDT Jakub Arciniega MD [facility] Procedures Code Procedure Name Date Entry Date Standard Description CPT-95146 Knee 3V 17:10:15 CDT
--- OUTSIDE RECORDS SUMMARY | 2018-02-21 06:16 | XMS REPORT | Clinical Summary ---
Author Author Admin, ADAM Organization [facility] Address Unknown Phone Unavailable Allergies, Adverse [...] 1 tsp PO q6h PRN cough GUAIFENESIN-CODEINE 96718324887 No Longer Active Jakub Arciniega MD Active SPIRONOLACTONE 25 MG TABS TAKE 1/2 TABLET PO QD SPIRONOLACTONE 98834521063 No Longer Active Jakub Arciniega MD Active DOXYCYCLINE HYCLATE 100 MG CAPS TAKE 1 TABLET PO BID DOXYCYCLINE HYCLATE 81824426245 No Longer Active Jakub Arciniega MD Active HYDROCODONE-ACETAMINOPHEN 5-500 MG TABS take 1 po Q 6 hours prn pain HYDROCODONE-ACETAMINOPHEN 56362842571 No Longer Active Jakub Arciniega MD Active BACTROBAN 2 % OINT 3 times daily for 14 days MUPIROCIN 45958202949 No Longer Active Jakub Arciniega MD Active CHERATUSSIN AC 100-10 MG/5ML SYRP 1 tsp by mouth every 4 hours as needed for cough GUAIFENESIN-CODEINE 61819957263 No Longer Active Jakub Arciniega MD Active PREDNISONE 20 MG TAB 2 tabs daily for 3 days, 1 tab daily for 3 days, 1/2 tab daily for 2 days PREDNISONE 64374330633 No Longer Active Jakub Arciniega MD Active ZITHROMAX 250 MG TAB 2 po today, then 1 po q days 2-5 AZITHROMYCIN 99840357281 No Longer Active Jakub Arciniega MD Active SIMVASTATIN 20 MG TABS 1 po daily SIMVASTATIN 84242790697 Active Lashell Carney DIE REAMER Active CHERATUSSIN AC 100-10 MG/5ML SYRP 1 tsp by mouth every 4 hours as needed for cough CHERATUSSIN AC 100-10 MG/5ML SYRP 663029 GUAIFENESIN-CODEINE Inactive BACTROBAN 2 % OINT 3 times daily for 14 days BACTROBAN 2 % OINT 268808 MUPIROCIN Inactive HYDROCODONE-ACETAMINOPHEN 5-500 MG TABS take 1 po Q 6 hours prn pain HYDROCODONE-ACETAMINOPHEN 5-500 MG TABS HYDROCODONE- ACETAMINOPHEN Inactive DOXYCYCLINE HYCLATE 100 MG CAPS TAKE 1 TABLET PO BID DOXYCYCLINE HYCLATE 100 MG CAPS 8744445 DOXYCYCLINE HYCLATE Inactive SPIRONOLACTONE 25 MG TABS TAKE 1/2 TABLET PO QD SPIRONOLACTONE 25 MG TABS 447764 SPIRONOLACTONE Inactive GUAIFENESIN-CODEINE 100-10 MG/5ML SYRP 1 tsp PO q6h PRN cough GUAIFENESIN-CODEINE 100-10 MG/5ML SYRP 020862 GUAIFENESIN-CODEINE Inactive ZITHROMAX 250 MG TAB 2 po today, then 1 po q days 2-5 ZITHROMAX 250 MG TAB 1021315 AZITHROMYCIN Inactive PREDNISONE 20 MG TAB 2 tabs daily for 3 days, 1 tab daily for 3 days, 1/2 tab daily for 2 days PREDNISONE 20 MG TAB 970267 PREDNISONE Inactive Vital Signs Date Name Value Unit Range Description blood pressure, diastolic - 8462-4 76 mm[Hg] BP woodard blood pressure, systolic - 8480-6 115 mm[Hg] BP sys pulse rate E&M - 8867-4 88 /min Heart rate temperature E&M 98.2 [degF] Body temperature weight E&M - 3141-9 230 [lb_av] Weight Measured Encounters Code Encounter Date Provider Facility CPT-53095 Level 3 Est. Patient 13:49:04 CDT Jakub Arciniega MD [facility] CPT-38794 Level 3 Est. Patient 12:49:25 PROTECTION MGR David Mercedes MD [facility] CPT-80802 Level 3 Est. Patient 20:50:49 CDT Jakub Arciniega MD [facility] CPT-42464 Level 3 Est. Patient 14:31:29 CDT Dimple García [facility] CPT-93049 Level 3 Est. Patient 21:23:01 CDT Leanne Olmos MD PhD [facility] CPT-86162 Level 3 Est. Patient 15:37:45 PROTECTION MGR Jakub Arciniega MD [facility] CPT-53687 Level 3 Est. Patient 10:40:45 PROTECTION MGR Jakub Arciniega MD [facility] CPT-04394 Level 3 Est. Patient 14:24:04 CDT Jakub Arciniega MD [facility] Procedures Code Procedure Name Date Entry Date Standard Description CPT-54964 Skin tag remov up to/=15 13:49:04 CDT CPT-99458 Knee 3V 17:10:15 CDT
--- OUTSIDE RECORDS SUMMARY | 2018-02-21 06:17 | XMS REPORT | Clinical Summary ---
Author Author Admin, ADAM Organization [facility] Address Unknown Phone Unavailable Allergies, Adverse [...] 1 tsp PO q6h PRN cough GUAIFENESIN-CODEINE 92908218738 No Longer Active Jakub Arciniega MD Active SPIRONOLACTONE 25 MG TABS TAKE 1/2 TABLET PO QD SPIRONOLACTONE 16234650290 No Longer Active Jakub Arciniega MD Active DOXYCYCLINE HYCLATE 100 MG CAPS TAKE 1 TABLET PO BID DOXYCYCLINE HYCLATE 20709344642 No Longer Active Jakub Arciniega MD Active HYDROCODONE-ACETAMINOPHEN 5-500 MG TABS take 1 po Q 6 hours prn pain HYDROCODONE-ACETAMINOPHEN 28907437592 No Longer Active Jakub Arciniega MD Active BACTROBAN 2 % OINT 3 times daily for 14 days MUPIROCIN 72541277102 No Longer Active Jakub Arciniega MD Active CHERATUSSIN AC 100-10 MG/5ML SYRP 1 tsp by mouth every 4 hours as needed for cough GUAIFENESIN-CODEINE 81346823939 No Longer Active Jakub Arciniega MD Active PREDNISONE 20 MG TAB 2 tabs daily for 3 days, 1 tab daily for 3 days, 1/2 tab daily for 2 days PREDNISONE 92184161226 No Longer Active Jakub Arciniega MD Active ZITHROMAX 250 MG TAB 2 po today, then 1 po q days 2-5 AZITHROMYCIN 59202013170 No Longer Active Jakub Arciniega MD Active SIMVASTATIN 20 MG TABS 1 po daily SIMVASTATIN 96019544829 Active Jakub Arciniega MD Active CHERATUSSIN AC 100-10 MG/5ML SYRP 1 tsp by mouth every 4 hours as needed for cough CHERATUSSIN AC 100-10 MG/5ML SYRP 483147 GUAIFENESIN-CODEINE Inactive BACTROBAN 2 % OINT 3 times daily for 14 days BACTROBAN 2 % OINT 510688 MUPIROCIN Inactive HYDROCODONE-ACETAMINOPHEN 5-500 MG TABS take 1 po Q 6 hours prn pain HYDROCODONE-ACETAMINOPHEN 5-500 MG TABS HYDROCODONE- ACETAMINOPHEN Inactive DOXYCYCLINE HYCLATE 100 MG CAPS TAKE 1 TABLET PO BID DOXYCYCLINE HYCLATE 100 MG CAPS 4833697 DOXYCYCLINE HYCLATE Inactive SPIRONOLACTONE 25 MG TABS TAKE 1/2 TABLET PO QD SPIRONOLACTONE 25 MG TABS 959526 SPIRONOLACTONE Inactive GUAIFENESIN-CODEINE 100-10 MG/5ML SYRP 1 tsp PO q6h PRN cough GUAIFENESIN-CODEINE 100-10 MG/5ML SYRP 546849 GUAIFENESIN-CODEINE Inactive ZITHROMAX 250 MG TAB 2 po today, then 1 po q days 2-5 ZITHROMAX 250 MG TAB 2996204 AZITHROMYCIN Inactive PREDNISONE 20 MG TAB 2 tabs daily for 3 days, 1 tab daily for 3 days, 1/2 tab daily for 2 days PREDNISONE 20 MG TAB 210977 PREDNISONE Inactive Vital Signs Date Name Value [...] mg/dL Encounters Code Encounter Date Provider Facility CPT-67806 Level 4 Est. Patient 14:50:56 POTATO PEELING MACHINE OPERATOR Jakub Arciniega MD [facility] CPT-02462 Level 3 Est. Patient 13:49:04 CDT Jakub Arciniega MD [facility] CPT-35162 Level 3 Est. Patient 12:49:25 POTATO PEELING MACHINE OPERATOR David Mercedes MD [facility] CPT-12017 Level 3 Est. Patient 20:50:49 CDT Jakub Arciniega MD [facility] CPT-92665 Level 3 Est. Patient 14:31:29 CDT Dimple García [facility] CPT-74637 Level 3 Est. Patient 21:23:01 CDT Leanne Olmos MD PhD [facility] CPT-33312 Level 3 Est. Patient 15:37:45 POTATO PEELING MACHINE OPERATOR Jakub Arciniega MD [facility] CPT-81047 Level 3 Est. Patient 10:40:45 POTATO PEELING MACHINE OPERATOR Jakub Arciniega MD [facility] CPT-80094 Level 3 Est. Patient 14:24:04 CDT Jakub Arciniega MD [facility] Procedures Code Procedure Name Date Entry Date Standard Description CPT-84992 Skin tag remov up to/=15 13:49:04 CDT CPT-72563 Knee 3V 17:10:15 CDT
--- OUTSIDE RECORDS SUMMARY | 2018-02-21 06:17 | XMS REPORT | Continuity of Care Document ---
Author Author [facility] Address Unknown Phone Unavailable Allergies Active Description Code Type Severity Reaction Onset Reported/Identified Relationship to Patient Clinical Status Yes No Known Drug Allergies [id number] Drug Allergy Unknown N/A 02/13/2018 Medications There is no data. Problems Date Dx Coded Attending Type Code Diagnosis Diagnosed By 08/10/2017 SELIN PIZARRO, SEAN Dahl Z02.89 ENCOUNTER FOR OTHER ADMINISTRATIVE EXAMINATIONS 10/31/2017 SAMM ARCINIEGA Z12.31 ENCNTR SCREEN MAMMOGRAM FOR MALIGNANT NEOPLASM OF BREAST 10/31/2017 Other Z12.31 ENCNTR SCREEN MAMMOGRAM FOR MALIGNANT NEOPLASM OF BREAST 11/19/2017 Samm Arciniega MD M67.432 Ganglion cyst of left wrist 11/19/2017 Samm Arciniega MD N92.4 Abnormal perimenopausal bleeding 11/19/2017 Samm Arciniega MD Z68.38 BMI 38-38.9 adult 01/07/2018 Other N92.0 EXCESSIVE AND FREQUENT MENSTRUATION WITH REGULAR CYCLE 01/16/2018 Other N92.4 EXCESSIVE BLEEDING IN THE PREMENOPAUSAL PERIOD Procedures There is no data. Results There is no data. Encounters ACCT No. Visit Date/Time Discharge Status Pt. Type Provider Facility Loc./Unit Complaint [id number] 11/16/2017 16:25:00 ACT Unknown Samm Arciniega MD [id number] 07/20/2017 11:05:00 07/20/2017 23:59:59 [facility] Outpatient CHRISTINE OWEN MD [facility] [id number] 07/24/2016 12:48:00 07/24/2016 23:59:59 CLS Outpatient SAMM ARCINIEGA [facility] ENEDINA SCREENING [id number] 07/21/2016 09:32:00 07/21/2016 23:59:59 CLS Outpatient SEAN SMALLWOOD MD [facility] [id number] 12/04/2017 06:13:00 Document Registration [id number] 11/27/2017 07:35:00 Document Registration [id number] 07/25/2017 14:25:00 Document Registration [id number] 02/13/2018 05:38:00 02/13/2018 15:37:00 DIS Outpatient SILVIA GALINDO DO [facility] PREOP SOLID PELVIC MASS [id number] 02/21/2018 07:30:00 PEN Preadmit SILVIA GALINDO DO [facility] SDC SOLID PELVIC MASS, AUB [id number] 11/27/2017 14:18:42 ACT Document Registration
--- OUTSIDE RECORDS SUMMARY | 2018-02-21 06:17 | XMS REPORT | Clinical Summary ---
Author Author Admin, ADAM Organization [facility] Address Unknown Phone Unavailable Allergies, Adverse Reactions, [...] Unspecified pruritic disorder BRONCHITIS-ACUTE 466.0 Inactive Jakub rAciniega MD Acute bronchitis ROUTINE GYNECOLOGICAL EXAMINATION V72.31 [...] 1 tsp PO q6h PRN cough GUAIFENESIN-CODEINE 42182860130 Active David Mercedes MD Active SPIRONOLACTONE 25 MG TABS TAKE 1/2 TABLET PO QD SPIRONOLACTONE [id number] No Longer Active Jakub Arciniega MD Active DOXYCYCLINE HYCLATE 100 MG CAPS TAKE 1 TABLET PO BID DOXYCYCLINE HYCLATE 73508271081 No Longer Active Jakub Arciniega MD Active HYDROCODONE-ACETAMINOPHEN 5-500 MG TABS take 1 po Q 6 hours prn pain HYDROCODONE-ACETAMINOPHEN 50614119547 No Longer Active Jakub Arciniega MD Active BACTROBAN 2 % OINT 3 times daily for 14 days MUPIROCIN 83459164812 No Longer Active Jakub Arciniega MD Active CHERATUSSIN AC 100-10 MG/5ML SYRP 1 tsp by mouth every 4 hours as needed for cough GUAIFENESIN-CODEINE 26296085141 No Longer Active Jakub Arciniega MD Active PREDNISONE 20 MG TAB 2 tabs daily for 3 days, 1 tab daily for 3 days, 1/2 tab daily for 2 days PREDNISONE 87556700318 No Longer Active Jakub Arciniega MD Active ZITHROMAX 250 MG TAB 2 po today, then 1 po q days 2-5 AZITHROMYCIN 22765815306 No Longer Active Jakub Arciniega MD Active SIMVASTATIN 20 MG TABS 1 po daily SIMVASTATIN 96530953134 Active Jakub Arciniega MD Active CHERATUSSIN AC 100-10 MG/5ML SYRP 1 tsp by mouth every 4 hours as needed for cough CHERATUSSIN AC 100-10 MG/5ML SYRP 000131 GUAIFENESIN-CODEINE Inactive BACTROBAN 2 % OINT 3 times daily for 14 days BACTROBAN 2 % OINT 798274 MUPIROCIN Inactive HYDROCODONE-ACETAMINOPHEN 5-500 MG TABS take 1 po Q 6 hours prn pain HYDROCODONE-ACETAMINOPHEN 5-500 MG TABS HYDROCODONE- ACETAMINOPHEN Inactive DOXYCYCLINE HYCLATE 100 MG CAPS TAKE 1 TABLET PO BID DOXYCYCLINE HYCLATE 100 MG CAPS 601721 DOXYCYCLINE HYCLATE Inactive SPIRONOLACTONE 25 MG TABS TAKE 1/2 TABLET PO QD SPIRONOLACTONE 25 MG TABS 986539 SPIRONOLACTONE Inactive ZITHROMAX 250 MG TAB 2 po today, then 1 po q days 2-5 ZITHROMAX 250 MG TAB 1792288 AZITHROMYCIN Inactive PREDNISONE 20 MG TAB 2 tabs daily for 3 days, 1 tab daily for 3 days, 1/2 tab daily for 2 days PREDNISONE 20 MG TAB 001737 PREDNISONE Inactive Vital Signs Date Name Value [...] 10*3/mm3 Encounters Code Encounter Date Provider Facility CPT-55728 Level 3 Est. Patient 12:49:25 [employer] OPERATOR HELPER David Mercedes MD [facility] CPT-18743 Level 3 Est. Patient 20:50:49 CDT Jakub Arciniega MD [facility] CPT-06507 Level 3 Est. Patient 14:31:29 CDT Dimple García [facility] CPT-30637 Level 3 Est. Patient 21:23:01 CDT Leanne Olmos MD PhD [facility] CPT-15540 Level 3 Est. Patient 15:37:45 [employer] OPERATOR HELPER Jakub Arciniega MD [facility] CPT-61260 Level 3 Est. Patient 10:40:45 [employer] OPERATOR HELPER Jakub Arciniega MD [facility] CPT-97610 Level 3 Est. Patient 14:24:04 CDT Jakub Arciniega MD [facility] Procedures Code Procedure Name Date Entry Date Standard Description CPT-45041 Knee 3V 17:10:15 CDT
[2018-02-21] MEDS ORDERED: BUPIVACAINE 0.25% 30 ML (SENSORCAINE) VIAL ONE (06:27)
[2018-02-21 06:30] VITALS: BP 142/101
[2018-02-21] MEDS ORDERED: FAMOTIDINE 20MG/2ML IV (PEPCID) ONE (06:32)
[2018-02-21] MEDS ORDERED: ceFAZolin 2 GM IV Premixed 50 ML ONE (06:32)
[2018-02-21] MEDS ORDERED: SCOPOLAMINE 1.5 MG (TRANSDERM-SCOP) PATCH ONE (06:32)
[2018-02-21] MEDS ORDERED: ONDANSETRON 4 MG/2 ML (SDV) Z0FRAN ONE ×3 (06:32→09:01)
[2018-02-21] MEDS ORDERED: metroNIDAZOLE 500MG/100ML IVPB 100 ML ONE (06:32)
[2018-02-21] MEDS ORDERED: DEXAMETHASONE 10 MG/ML (DECADRON) 1 ML VIAL ONE (06:33)
[2018-02-21] MEDS ORDERED: NEOSTIGMINE 1 MG/ML 5 ML SYRINGE ONE (06:33)
[2018-02-21] MEDS ORDERED: proPOfol 200 MG/20 ML (DIPRIVAN) VIAL IV ONE (06:33)
[2018-02-21] MEDS ORDERED: fentaNYL INJECTION 100 MCG/2 ML AMP ONE ×3 (06:33→09:02)
[2018-02-21] MEDS ORDERED: GLYCOPYRROLATE 0.2 MG/ML (ROBINUL) 2 ML VIAL ONE (06:33)
[2018-02-21] MEDS ORDERED: SEVOFLURANE (ULTANE) 15 ML INHAL SOLN ONE ×8 (06:33→08:52)
[2018-02-21] MEDS ORDERED: MIDAZOLAM 2 MG/2 ML (VERSED) VIAL ONE (06:33)
[2018-02-21] MEDS ORDERED: LIDOCAINE PF 2% 5 ML (XYLOCAINE) VIAL ONE ×2 (06:33→08:52)
[2018-02-21] MEDS ORDERED: ONDANSETRON 4 MG/2 ML (SDV) Z0FRAN IV ONE (06:45)
[2018-02-21] MEDS ORDERED: FAMOTIDINE 20MG/2ML IV (PEPCID) IV ONE (06:45)
[2018-02-21] MEDS ORDERED: SCOPOLAMINE 1.5 MG (TRANSDERM-SCOP) PATCH TOP ONE (06:45)
[2018-02-21] MEDS ORDERED: LACTATED RINGERS 1,000 ML IV ONE (06:48)
[2018-02-21] MEDS: LACTATED RINGERS 1,000 ML IV PRN ×2 (06:51→07:30)
[2018-02-21] MEDS ORDERED: ceFAZolin 2 GM IV Premixed 50 ML IV ONE (07:00)
[2018-02-21] MEDS ORDERED: metroNIDAZOLE 500MG/100ML IVPB 100 ML IV ONE (07:00)
[2018-02-21 07:04] LABS: BASOPHILS % (AUTO) 1 % (0-10); EOSINOPHILS # (AUTO) 0.4 10^3/uL (0.0-0.3); EOSINOPHILS % (AUTO) 6 % (0-10); HEMATOCRIT 45 % (35-52); HEMOGLOBIN 16.2 G/DL (11.5-16.0); LYMPHOCYTES # (AUTO) 1.9 X 10^3 (1.0-4.0); LYMPHOCYTES % (AUTO) 26 % (12-44); MEAN CORPUSCULAR HEMOGLOBIN 32 PG (25-34); MEAN CORPUSCULAR HGB CONC 36 G/DL (32-36); MEAN CORPUSCULAR VOLUME 89 FL (80-99); MEAN PLATELET VOLUME 12.2 FL (7.4-10.4); MONOCYTES # (AUTO) 0.8 X 10^3 (0.0-1.0); MONOCYTES % (AUTO) 11 % (0-12); NEUTROPHILS % (AUTO) 56 % (42-75); PLATELET COUNT 254 10^3/uL (130-400); RED BLOOD COUNT 5.07 10^6/uL (4.35-5.85); RED CELL DISTRIBUTION WIDTH 14.2 % (10.0-14.5); WHITE BLOOD COUNT 7.2 10^3/uL (4.3-11.0)
--- NOTE | 2018-02-21 07:07 | Progress Note-Pre Operative ---
Pre-Operative Progress Note H&P Reviewed The H&P was reviewed, patient examined and no changes noted. Date Seen by Provider: February 21, 2018 Time Seen by Provider: 07:00 Date H&P Reviewed: February 21, 2018 Time H&P Reviewed: 07:05 Pre-Operative Diagnosis: Solid pelvic mass, AUB SILVIA GALINDO DO February 21, 2018 7:07 am
[2018-02-21] MEDS ORDERED: LACTATED RINGERS 1,000 ML IV SCH (07:32)
--- NOTE | 2018-02-21 07:34 | Discharge Inst-Women's Service ---
Discharge Inst-Women's Serv Depart Medication/Instructions New, Converted or Re-Newed RX: RX on Chart Consults/Follow Up Additional Follow Up: Yes Orders/Referrals Dr. Chin in 7-10 days and in 8 weeks Activity Activity: Activity as Tolerated Driving Instructions: You May Drive (do not drive while taking hydrocodone) NO SMOKING: NO SMOKING Nothing Inside Vagina: No Douching, No [place], No Tampons Diet Discharge Diet: No Restrictions Symptoms to Report to : Bleeding Excessive, Pain Increased, Fever Over 101 Degrees F, Vaginal Bleeding Increase, Questions/Concerns For Any Problems or Questions: Contact Your Physician Skin/Wound Care Infection Signs and Symptoms: Increased Redness, Foul Odor of Wound, Increased Drainage, Skin Itchy or Has a Rash, Increased Swelling, Temperature Above 101 F Operative Area Clean and Dry: Keep Incision Clean/Dry Stitches/Secretary/Dermabond: Dermabond, Care of Stitches Bathing Instructions: SILVIA Monson DO February 21, 2018 7:34 am
[2018-02-21] MEDS ORDERED: DOCU100C37 PO (07:36)
[2018-02-21] MEDS ORDERED: SIME80TA16 PO (07:36)
[2018-02-21] MEDS ORDERED: IBUP-844 PO (07:36)
[2018-02-21] MEDS ORDERED: HYDR-34 PO (07:36)
[2018-02-21] MEDS ORDERED: ZOLPIDEM 5 MG (AMBIEN) TAB PO PRN (07:45)
[2018-02-21] MEDS ORDERED: CHLORASEPTIC LOZENGE MM PRN (07:45)
[2018-02-21] MEDS ORDERED: DOCUSATE SODIUM 100 MG (COLACE) CAP PO PRN (07:45)
[2018-02-21] MEDS ORDERED: ANTACID SUSP 30 ML UDC (MYLANTA) PO PRN (07:45)
[2018-02-21] MEDS ORDERED: SIMETHICONE 80 MG (MYLICON) CHEW PO PRN (07:45)
[2018-02-21] MEDS ORDERED: HYDROcodone/APAP 7.5 MG/325 MG (LORTAB, LORCET PLUS) TABLET PO PRN (07:45)
[2018-02-21] MEDS ORDERED: KETOROLAC 30 MG/ML VIAL ONE (09:01)
[2018-02-21] MEDS ORDERED: morphine INJ 10 MG/ML 1ML (SYR OR VIAL) ONE (09:01)
[2018-02-21] MEDS ORDERED: HYDROmorphone 1 MG/ML (DILAUDID) 1 ML SYRINGE ONE (09:26)
[2018-02-21] MEDS: KETOROLAC 30 MG/ML VIAL IV PRN ×3 (09:45→21:28)
[2018-02-21] MEDS ORDERED: MEPERIDINE (DEMEROL) INJ 50 MG/ML IVP PRN (09:45)
[2018-02-21] MEDS ORDERED: ONDANSETRON 4 MG/2 ML (SDV) Z0FRAN IVP PRN (09:45)
[2018-02-21] MEDS ORDERED: fentaNYL INJECTION 100 MCG/2 ML AMP IVP PRN (09:45)
[2018-02-21] MEDS ORDERED: PROMETHAZINE INJ 25 MG/ML (PHENERGAN) AMP IVP PRN ×2 (09:45→22:15)
[2018-02-21] MEDS: HYDROmorphone 1 MG/ML (DILAUDID) 1 ML SYRINGE IV PRN ×2 (09:50→10:00)
--- NOTE | 2018-02-21 10:11 | Anesthesia-General Post-Op ---
General Patient Condition Mental Status/LOC: Same as Preop Cardiovascular: Satisfactory Nausea/Vomiting: Absent Respiratory: Satisfactory Pain: Controlled Complications: Absent Post Op Complications Complications None Follow Up Care/Instructions Patient Instructions None needed. Anesthesia/Patient Condition Patient Condition Patient is doing well, no complaints, stable vital signs, no apparent adverse anesthesia problems. No complications reported per nursing. DALE MEDINA CRNA February 21, 2018 10:11
[2018-02-21 10:45] VITALS: BP 125/71
[2018-02-21] MEDS: ONDANSETRON 4 MG/2 ML (SDV) Z0FRAN IV PRN ×2 (13:36→21:24)
[2018-02-21 16:12] VITALS: BP 158/95
[2018-02-21 20:30] VITALS: BP 152/87
[2018-02-21] MEDS ORDERED: D5 LR IV SOLUTION 1,000 ML IV SCH (22:15)
--- NOTE | 2018-02-21 22:32 | OPERATIVE REPORT ---
DATE OF SERVICE: 02/21/2018 PREOPERATIVE DIAGNOSIS: A 47-year-old female with solid pelvic mass. POSTOPERATIVE DIAGNOSES: A 47-year-old female with solid pelvic mass plus suspected uterine fibroids. PROCEDURES: Robotic assisted total laparoscopic hysterectomy with bilateral salpingectomy and left oophorectomy greater than 250 grams. SURGEON: Bret Galindo DO TRANSFERRER: STEVE May ANESTHESIA: General endotracheal. ESTIMATED BLOOD LOSS: 50 mL. URINE OUTPUT: 125 mL cleared in the procedure. FLUIDS: 1600 mL Lactated Ringer's solution. FINDINGS: A normal appearing uterus, bilateral fallopian tubes. A cystic appearing left ovary and grossly normal appearing right ovary and a fibroid starting at the base of the left broad ligament extending into the left pelvic sidewall. SPECIMEN SENT: Uterus with fibroid, bilateral fallopian tubes and left ovary. INDICATIONS FOR PROCEDURE: This 47-year-old female was a consultation in my office due to the finding of a solid pelvic mass that is suspected it might be ovarian. A followup ultrasound revealed that we could not ascertain the difference between ovarian or uterine as its origin. However, tumor markers were ordered as a suspected malignancy within our differential. All of her tumor markers were negative. I discussed with the patient removal of uterus with this mass as the location of this mass involved likely the uterus and could possibly be a fibroid. Risks of the procedure were discussed with the patient in detail including risks of bleeding, infection, damage to surrounding structures including, but not limited to bowel, bladder, ureter, kidneys, risk of postoperative complications, reoperation and even . After everything was discussed with the patient, consent was obtained in the preoperative area. The patient was taken to the operating room. OPERATIVE REPORT IN DETAIL: Once in the operating room, general anesthesia was found to be adequate, placed in dorsal lithotomy position, prepped and draped in normal sterile fashion. A Pizarro catheter was placed using sterile technique. A timeout was performed. I then placed a weighted speculum into the patient's vagina. A right angle retractor was used to visualize the cervix, which was grasped at 12 o'clock position using a long Allis clamp. I then placed an 0 Vicryl suture through the anterior lip of cervix and removed the Allis clamp. I then able to use that suture as my retraction point. The uterine cavity then sounded and found to be 8 cm depth. I then split the 8 cm Gunjan uterine manipulator tip and 3.5 cm colpotomy ring. I advanced this into the uterus and deployed the balloon and advanced a colpotomy ring around the vaginal fornix. Once this was in place, I removed all of the other instruments from the patient's vagina. Performed a change of gloves, taking my attention to the abdomen where infraumbilically I infiltrated this area using 0.25% Marcaine and made an 8 mm incision and direct through this incision, a Veress needle until entry into place was confirmed using the saline drop test. I then proceeded with insufflation using CO2 gas, opening pressure of 5 mmHg was noted. I proceeded to maximum pressure of 15 mmHg, at which point I removed the Veress needle and introduced an 8 mm blunt da Brenda camera trocar. Once this is in place, I am able to confirm intraperitoneal placement using da Brenda laparoscope. I had the patient placed in steep Trendelenburg and made to visualize all the findings described in my findings above. I then placed two lateral trocars. These were approximately 8 cm lateral to my infraumbilical trocar. I infiltrated the skin using 0.25% Marcaine and made an 8 mm incision and after these were made, I am able to direct the trocars through the incision until intraperitoneal placement was confirmed using the da Brenda laparoscope. I then bring in the da Brenda robot and docked in appropriate fashion. I placed the da Brenda vessel sealer in the left hand and monopolar flory in the right hand. On the right side, I decided to leave the ovary because it is completely normal appearing and the patient is 47. We may still have some hormonal reserve. I grasped the uteroovarian ligament, bipolar cauterized and transected using the vessel sealer. I then created a window in the mesosalpinx using monopolar flory and then took this incision laterally amputating the fallopian tube from the surrounding blood supply. I then grasped the round ligament, bipolar cauterized this and transected using the vessel sealer. I then took the broad ligament down to the lower uterine segment using the vessel sealer as my dissection. Anterior leaflet was taken down to the anterior vaginal fornix. The posterior leaflet of the broad ligament was taken around to the posterior vaginal fornix, which exposed these uterine vessels laterally, which I bipolar cauterized and transected using the vessel sealer. Once this was done, I took my attention to the left side where I grasped the infundibulopelvic ligament, and bipolar cauterized this and transected using the vessel sealer. I took this down to the level of the round ligament, which I bipolar cauterized, and transected using vessel sealer, which allowed me to grasp the broad ligaments, which I bipolar cauterized and transected using vessel sealer. I created a reflection in the dissection of the peritoneum on the superior aspect and took this around the lateral pelvic side wall fibroid. I bluntly dissected away from this and care was taken to avoid the ureter during my dissection. No energy was also used because of its proximity to the ureter as well. Once this was done, I am able to elevate this fibroid away from the sidewall and skeletonized the uterine vessels, which I then bipolar cauterized and transected using the vessel sealer. I then created a colpotomy at 12 o'clock position using monopolar flory and taken circumferentially around the colpotomy ring amputating the specimen from the vaginal fornix. It is then all removed through the vagina. I then proceeded with closing the lateral vaginal apices of the vaginal cuff using 2-0 Vicryl suture in a [id number] fashion. Colposuspending them through the uterosacral ligaments. Once this was done, I then closed the remainder of the vaginal cuff using 2-0 V-Loc in a running fashion. There is no active bleeding noted from any of my dissection planes. I then undocked the da Brenda robot and proceeded with the remainder of the case laparoscopically. I copiously irrigated the pelvis using normal saline. Once again, no active bleeding was noted from any of my dissection planes. I then placed FloSeal hemostatic agent over all my planes of dissection and have the patient taken out of steep Trendelenburg. The lateral trocars were removed under direct visualization of the laparoscope. The infraumbilical trocar was left in place to release insufflation introducing another 0.25% Marcaine for postoperative pain management. I then removed this trocar as well. The skin was then closed using 4-0 Monocryl in an interrupted subcuticular stitches. Dermabond was applied to incision. A bandage was placed over these. The patient tolerated the procedure well and taken to recovery area with Pizarro catheter still in place. Lap and sponge counts were correct at the end of the procedure. Instrument count was correct as well. Two grams of Ancef and 500 mg of Flagyl were given preoperatively for infection prophylaxis. Job ID: [id number] DocumentID: [id number] Dictated Date: 02/21/2018 10:37:21 Dry Room Attendant Date: 02/21/2018 16:43:18 Dictated By: BRET GALINDO DO
[2018-02-22 00:10] VITALS: BP 124/76
[2018-02-22] MEDS ORDERED: IBUPROFEN 600 MG (MOTRIN) TAB PO ONE (04:40)
[2018-02-22 04:46] VITALS: BP 127/79
[2018-02-22 07:40] VITALS: BP 134/72
[2018-02-22] MEDS ORDERED: IBUPROFEN 600 MG (MOTRIN) TAB PO PRN (09:00)
--- NOTE | 2018-02-22 14:35 | Anesthesia-General Post-Op ---
General Patient Condition Mental Status/LOC: Same as Preop Cardiovascular: Satisfactory Nausea/Vomiting: Absent Respiratory: Satisfactory Pain: Controlled Complications: Absent Post Op Complications Complications None Follow Up Care/Instructions Patient Instructions None needed. Anesthesia/Patient Condition Patient Condition Patient was seen this morning and she was doing well, no complaints, stable vital signs, no apparent adverse anesthesia problems. She did have severe PONV despite pretreatment, but it was improved this morning. TRESSA SIERRA DO Feb 22, 2018 14:35
== END 2018-02-22 08:15 | disposition home or self-care (01) ==
LOC: SDC 06:08 → WS 10:35 → SDC 02-22 08:15
PROVIDERS: ATTEND Obstetrics & Gynecology
DX: D25.9 Leiomyoma of uterus, unspecified (principal); N83.12 Corpus luteum cyst of left ovary; N73.6 Female pelvic peritoneal adhesions (postinfective); E78.5 Hyperlipidemia, unspecified; Z87.891 Personal history of nicotine dependence; E66.9 Obesity, unspecified; Z79.899 Other long term (current) drug therapy; Z68.38 Body mass index [BMI] 38.0-38.9, adult
CPT/HCPCS: 36415; 84703; 85025; 86850; 86900; 86901; 88307; 94664